=== PATIENT | female | born 1940 | race Caucasian/White ===

== ENCOUNTER → 2016-09-11 | Outpatient (CLI) | payer OTHER ==
[~2016-09-11] MED LIST: ASPCH81X PO; CALC12502 PO; CARV25TA PO; CHOL100027 PO; CLOP1TAB15 PO; CMD25 PO; CRD200 PO; CRG25 PO; CZR50 PO; FAMO40TA6 PO; FLV1 PO; FOLI800T PO; LEVO75TA PO; LNX125 PO; LOSA1TAB38 PO; MULT-506 PO; OMEP20CA59 PO; ONDA4TAB46 PO; PHEN-939 PO; SULF1TAB92 PO; SYMIN160 INH; SYN75 PO; TRIATAB3 PO; WARF2.5T8 PO; WARF5TAB90 PO; [UNRECOGNIZED DRUG - CODE] PO
--- NOTE | 2016-09-11 11:16 | DIAGNOSTIC IMAGING REPORT ---
CT OF THE CERVICAL SPINE CLINICAL HISTORY: CERVICAL SPONDYLOSIS NECK PAIN COMPARISON STUDY: No previous studies for comparison. CT DOSE: 376.36 mGycm TECHNIQUE: CT scan of the cervical spine was performed from the skull base to the thoracic inlet. Images are reviewed in the axial, sagittal, and coronal planes. IV contrast was not administered for this examination. FINDINGS: There is apical emphysema. The prevertebral soft tissues are normal. No fractures or traumatic subluxations are visualized. There are multilevel degenerative changes. 1.8 mm of anterior subluxation of C4 on C5 is felt to be degenerative. There is left-sided foraminal narrowing the C3-4 and C4-5 levels. There is a nonaggressive 4 mm cystic lesion within the odontoid. IMPRESSION: 1. Multilevel degenerative change with left-sided foraminal narrowing the C3-4 and C4-5 levels 2. No acute fractures or traumatic subluxations identified Electronically signed by: Wilver Falcon M.D. 09/11/2016 11:15 AM Dictated Date/Time: 09/11/2016 11:12 AM
== END | disposition home or self-care (01) ==
LOC: C.CTS 10:51
PROVIDERS: ATTEND Pain Medicine Interventional Pain Medicine
DX: M43.12 Spondylolisthesis, cervical region (principal)

== ENCOUNTER → 2016-10-26 | Outpatient (CLI) | payer OTHER ==
[~2016-10-26] MED LIST changes: -CARV25TA PO; -FAMO40TA6 PO; -FOLI800T PO; -LEVO75TA PO; -LOSA1TAB38 PO; -ONDA4TAB46 PO; -PHEN-939 PO; -SULF1TAB92 PO; -SYMIN160 INH; -TRIATAB3 PO; -WARF2.5T8 PO
--- NOTE | 2016-10-26 12:43 | MAMMOGRAPHY REPORT ---
BILATERAL DIGITAL SCREENING MAMMOGRAM WITH CAD: 10/26/2016 CLINICAL HISTORY: Routine screening. Patient has no complaints. TECHNIQUE: Current study was also evaluated with a Computer Aided Detection (CAD) system. Bilateral CC and MLO views were obtained. COMPARISON: Comparison is made to exams dated: 10/25/2015 mammogram, 10/22/2014 mammogram, 10/20/2013 ma mmogram, 10/13/2012 mammogram - [facility], 03/26/2011 mammogram, and 03/17/2009 mammo gram - [facility]. BREAST COMPOSITION: The tissue of both breasts is heterogeneously dense, which may obscure small mas ses. FINDINGS: No suspicious masses, calcifications, or areas of architectural distortion are noted in ei ther breast. There has been no significant interval change compared to prior exams. Scattered bilater al benign-appearing calcifications are not significantly changed. A pacemaker obscures portions of t he left superior breast/axilla on the MLO view. IMPRESSION: ACR BI-RADS CATEGORY 2: BENIGN There is no mammographic evidence of malignancy. A 1 year screening mammogram is recommended. The pa tient will receive written notification of the results. Approximately 10% of breast cancers are not detected with mammography. A negative mammographic report should not delay biopsy if a clinically suggestive mass is present. Margarita Melo M.D. /:10/26/2016 11:57:07 Lead Section Supervisor: Marie LE)(M), [facility] letter sent: Normal 1/2 BI-RADS Code: ACR BI-RADS Category 2: Benign
== END | disposition home or self-care (01) ==
LOC: C.MAMM 11:09
PROVIDERS: ATTEND Physician Assistant Medical
DX: Z12.31 Encounter for screening mammogram for malignant neoplasm of breast (principal)

== ENCOUNTER 2017-03-10 12:09 | Emergency (ER) | payer OTHER ==
[~2017-03-10] VITALS: Ht 167.6 cm; Wt 62.9 kg
[2017-03-10 12:11] VITALS: TEMP 36.7; Ht 167.6 cm; Wt 62.9 kg
[2017-03-10] MEDS ORDERED: FOLI800T PO (12:33)
[2017-03-10] MEDS ORDERED: SYMIN160 INH (12:33)
[2017-03-10] MEDS ORDERED: LOSA1TAB38 PO (12:33)
[2017-03-10] MEDS ORDERED: TRIATAB3 PO (12:33)
[2017-03-10] MEDS ORDERED: WARF2.5T8 PO (12:33)
[2017-03-10] MEDS ORDERED: LEVO75TA PO (12:33)
[2017-03-10] MEDS ORDERED: SULF1TAB92 PO (12:33)
[2017-03-10] MEDS ORDERED: ONDA4TAB46 PO (12:33)
[2017-03-10] MEDS ORDERED: CARV25TA PO (12:33)
--- NOTE | 2017-03-10 12:52 | EMERGENCY ROOM VISIT NOTE ---
History Report prepared by Jaydon: Francisco Javier Warner Under the Supervision of: Dr. Sudhakar Rodriguez M.D. First contact with patient: 12:33 Chief Complaint: URINARY SYMPTOMS Stated Complaint: UTI X 2 WKS, NAUSEA, DELCID-SENT TO ER BY History of Present Illness The patient is a 77 year old white female with a past medical history of a-fib, CAD, CABG, ICD biventricular placement, COPD, dyslipidemia, GERD, hypothyroidism , pacemaker, ND who presents to the ED with a cc of constant burning with urination and pressure in her bladder beginning one week ago. Patient had a UTI two weeks ago and was given Cipro. She took it for a week, and her symptoms returned immediately after taking Cipro. Patient went back to PCP and was given Levaquin. It did not work and has been on Bactrim for 2 days. Positive nausea, fluid buildup, and headache. Negative vomiting, missing doses of medication other than a dose of Coumadin this morning, feeling like cardiac issues. Patient 's last INR was three weeks ago, and it was high. She is currently taking Lasix and Amiodarone. Source of History: patient Onset: week ago Position: other (global) Quality: other (burning with urination, pressure in bladder) Timing: constant Associated Symptoms: + headache, + nausea, No vomiting Note: Associated symptoms: fluid build up Denies: missing medication Review of Systems See HPI for pertinent positives and negatives. A total of ten systems were reviewed and were otherwise negative. Past Medical & Surgical Medical Problems: (1) A-fib (2) CAD (coronary artery disease) (3) COPD (chronic obstructive pulmonary disease) (4) Dyslipidemia (5) GERD (gastroesophageal reflux disease) (6) Hypothyroidism (7) Myocardial infarction Surgical Problems: (1) Hx of CABG Family History Patient reports no known family medical history. Social History Smoking Status: Former Smoker Alcohol Use: none Marital Status: Current/Historical Medications Scheduled Aspirin (Aspirin Chewable), 81 MG PO HS Budesonide/Formoterol Fumarate (Symbicort 160/4.5 Inhaler ), 2 PUFFS INH BID Calcium Carbonate (Os-Walter 500), 1,000 MG PO DAILY Carvedilol (Coreg), 12.5 MG PO BID Cholecalciferol (Vitamin D 1000 Unit), 2,000 INTER.UNIT PO DAILY Ezetimibe/Simvastatin (Vytorin 10MG/80MG), 1 TAB PO QPM Famotidine (Pepcid), 1 TAB PO DAILY Folic Acid (Folic Acid), 800 MCG PO BID Levothyroxine Sodium (Synthroid), 75 MCG PO DAILY Losartan Potassium (Cozaar), 50 MG PO DAILY Multivitamin (Multivitamin), 1 TAB PO DAILY Omeprazole (Prilosec), 20 MG PO Q2D Phenazopyridine Hcl (Pyridium), 1 TAB PO TID Triamterene/Hctz (Triamterene/Hctz 37.5-25MG), 1 TAB PO DAILY Trimethoprim/Sulfamethoxazole (Bactrim 400MG/80MG), 1 TAB PO BID Warfarin Sod (Jantoven), 2.5 MG PO DAILY Scheduled PRN Ondansetron Hcl (Zofran), 4 MG PO Q4 PRN for Nausea Allergies Coded Allergies: Penicillins (Verified Allergy, Severe, "CAN'T BREATHE", 08/24/14) Physical Exam Vital Signs Date Time Temp Pulse Resp B/P (MAP) Pulse Ox O2 Delivery O2 Flow Rate FiO2 03/10/17 14:50 66 20 105/77 95 03/10/17 13:26 64 03/10/17 12:11 36.7 71 18 114/65 93 Room Air Physical Exam GENERAL: Awake, alert, well-appearing, NAD HENT: Normocephalic, atraumatic. EYES: Normal conjunctiva. Sclera non-icteric. NECK: Supple. No nuchal rigidity. FROM. RESPIRATORY: No rhonchi, wheezing. Bibasilar crackles. CARDIAC: RRR, no MRG ABDOMEN: Soft, NTND, BS+ MSK: No chest wall TTP, no LE edema. No CVA tenderness NEURO: GCS 15, CN 2-12 intact, moves all 4s on command SKIN: No rash or jaundice noted. Medical Decision & Procedures ER Provider Diagnostic Interpretation: X-ray: Per my interpretation, radiologist review. CHEST ONE VIEW PORTABLE HISTORY: Generalized abdominal pain. COMPARISON: Chest 12/27/2015. FINDINGS: Left-sided pacemaker/defibrillator. The heart remains borderline enlarged. No pneumothorax. Stable blunting of the costophrenic sulci. This may be due to the hyperexpanded lungs. No definite pleural effusions. Mild diffuse interstitial thickening. IMPRESSION: Mild diffuse interstitial thickening. This could be chronic or due to mild congestive change. Electronically signed by: Kraig Noel M.D. 03/10/2017 1:15 PM Dictated Date/Time: 03/10/2017 1:13 PM Laboratory Results 03/10/17 12:40 Red Blood Count 3.59, Mean Corpuscular Volume 85.5, Mean Corpuscular Hemoglobin 28.4, Mean Corpuscular Hemoglobin Concent 33.2, Mean Platelet Volume 8.5, Neutrophils (%) (Auto) 62.6, Lymphocytes (%) (Auto) 25.2, Monocytes (%) (Auto) 9.3, Eosinophils (%) (Auto) 2.4, Basophils (%) (Auto) 0.2, Neutrophils # (Auto) 3.90, Lymphocytes # (Auto) 1.57, Monocytes # (Auto) 0.58, Eosinophils # (Auto) 0.15, Basophils # (Auto) 0.01 03/10/17 12:40 Test 03/10/17 12:40 03/10/17 13:05 White Blood Count 6.23 K/uL (4.8-10.8) Red Blood Count 3.59 M/uL (4.2-5.4) Hemoglobin 10.2 g/dL (12.0-16.0) Hematocrit 30.7 % (37-47) Mean Corpuscular Volume 85.5 fL (80-100) Mean Corpuscular Hemoglobin 28.4 pg (25-34) Mean Corpuscular Hemoglobin Concent 33.2 g/dl (32-36) Platelet Count 227 K/uL (130-400) Mean Platelet Volume 8.5 fL (7.4-10.4) Neutrophils (%) (Auto) 62.6 % Lymphocytes (%) (Auto) 25.2 % Monocytes (%) (Auto) 9.3 % Eosinophils (%) (Auto) 2.4 % Basophils (%) (Auto) 0.2 % Neutrophils # (Auto) 3.90 K/uL (1.4-6.5) Lymphocytes # (Auto) 1.57 K/uL (1.2-3.4) Monocytes # (Auto) 0.58 K/uL (0.11-0.59) Eosinophils # (Auto) 0.15 K/uL (0-0.5) Basophils # (Auto) 0.01 K/uL (0-0.2) RDW Standard Deviation 47.6 fL (36.4-46.3) RDW Coefficient of Variation 15.2 % (11.5-14.5) Immature Granulocyte % (Auto) 0.3 % Immature Granulocyte # (Auto) 0.02 K/uL (0.00-0.02) Anion Gap 5.0 mmol/L (3-11) Est Creatinine Clear Calc Drug Dose 29.4 ml/min Estimated GFR () 39.6 Estimated GFR (Non- 34.2 BUN/Creatinine Ratio 9.9 (10-20) Calcium Level 8.1 mg/dl (8.5-10.1) Magnesium Level 1.8 mg/dl (1.8-2.4) Total Bilirubin 0.4 mg/dl (0.2-1) Direct Bilirubin 0.2 mg/dl (0-0.2) Aspartate Amino Transf (AST/SGOT) 25 U/L (15-37) Alanine Aminotransferase (ALT/SGPT) 15 U/L (12-78) Alkaline Phosphatase 54 U/L (45-117) Troponin I < 0.015 ng/ml (0-0.045) Pro-B-Type Natriuretic Peptide 1047 pg/ml (0-1800) Total Protein 7.0 gm/dl (6.4-8.2) Albumin 2.5 gm/dl (3.4-5.0) Lipase 107 U/L (73-393) Urine Color YELLOW Urine Appearance CLEAR (CLEAR) Urine pH 6.0 (4.5-7.5) Urine Specific Kimberly 1.014 (1.000-1.030) Urine Protein NEG (NEG) Urine Glucose (UA) NEG (NEG) Urine Ketones NEG (NEG) Urine Occult Blood NEG (NEG) Urine Nitrite NEG (NEG) Urine Bilirubin NEG (NEG) Urine Urobilinogen NEG (NEG) Urine Leukocyte Esterase NEG (NEG) Laboratory results reviewed by me Medications Administered Medications (Trade) Dose Ordered Sig/Shae Route Start Time Stop Time Status Last Admin Dose Admin Ondansetron HCl (Zofran Inj) 4 mg NOW STAT IV 03/10/17 13:01 03/10/17 13:03 DC 03/10/17 13:17 4 MG ECG Indication: weakness Rate (beats per minute): 62 Rhythm: other (Atrial sensed ventricularly paced) Findings: Q waves (Lateral and inferior), left axis deviation, other ( Prolonged QTc, Wide QRS) Comparison ECG Date: 08/26/14 Change: QTc is slightly more pronounced ED Course 1240: The patient was evaluated in room B10. A complete history and physical exam was performed. 1359: I reevaluated the patient. Discussed results and discharge instructions: she verbalized understanding and agreement. The patient is ready for discharge. Medical Decision The patient is a 77 year old white female with a past medical history of a-fib, CAD, CABG, ICD biventricular placement, COPD, dyslipidemia, GERD, hypothyroidism , pacemaker, ND who presents to the ED with a cc of burning with urination and pressure in her bladder beginning one week ago. Etiologies such as renal colic, appendicitis, diverticulitis, mesenteric ischemia, aortic pathology, infections , inflammatory bowel disease, PUD, biliary pathology, UTI, a typical chest pain , ACS, as well as others were entertained. Patient was seen and evaluated at the bedside. Patient had been complaining of some nausea as well as some burning urination and increased urinary frequency that has been ongoing for 2 weeks. Patient states that she was initially on a run of Cipro and then had concern on some Levaquin but was recently stopped from the Levaquin is started on Bactrim for the last 2 days. Patient denies any chest pain or shortness of breath. Patient did have blood work that was completed along with a urinalysis checked 6 chest x-ray, troponin, and EKG. The troponin and EKG were obtained to rule out possible atypical chest pain given the patient's nausea prior history of CAD. Patient states that she has had some mild weight gain within the last 2 days. Patient states that she takes Lasix every other day. Patient's blood work did show some mild hyponatremia. Patient is not altered is not had any seizure-like activity and has not been having any falls. This may be related to her Lasix use. The discussed with the patient would likely benefit from follow-up with her PCP and/ or manager recovery. Patient's EKG did not show any ischemic changes. She did have a slightly more prolonged QTC however the patient does have an AICD. Patient's troponin and BNP with that were within normal limits. Chest x-ray did show some vascular congestion however the patient is not hypoxic or tachypneic and does not have any difficulty breathing. Patient was told she should take an extra dose of her Lasix this evening. Patient was agreeable to this plan of care. Patient's urinalysis is negative. Patient was told to continue her Bactrim. Patient was deemed suitable for outpatient follow-up and treatment. Patient was given strict follow-up, discharge, and return precautions. All questions were answered. Patient was deemed suitable for outpatient follow-up at this time. Patient agreed with the plan of care and was safely discharged home. Medication Reconcilliation Current Medication List: was personally reviewed by me Blood Pressure Screening Patient's blood pressure: Normal blood pressure Blood pressure disposition: Did not require urgent referral Impression Primary Impression: Nausea Additional Impressions: Dysuria Hyponatremia Scribe Attestation The scribe's documentation has been prepared under my direction and personally reviewed by me in its entirety. I confirm that the note above accurately reflects all work, treatment, procedures, and medical decision making performed by me. Departure Information Dispostion Home / Self-Care Prescriptions Phenazopyridine Hcl (PYRIDIUM) 100 Mg Tab 1 TAB PO TID for 3 Days, #9 TAB Prov: Sudhakar Rodriguez M.D. 03/10/17 Famotidine (PEPCID) 40 Mg Tab 1 TAB PO DAILY for 30 Days, #30 TAB 3 Refills Prov: Sudhakar Rodriguez M.D. 03/10/17 Referrals Armani Haywood PA-C (PCP) Forms HOME CARE DOCUMENTATION FORM, IMPORTANT VISIT INFORMATION Patient Instructions ED Nausea Vomiting, My [facility], Nausea Vomit Control Additional Instructions Please return to the emergency department if you have worsening or recurrent symptoms not amenable to at-home treatment. Please call for a follow-up appointment with her primary care physician. Please take your medications as prescribed. If you have other concerns and/or complaints please feel free to also call your primary care physician's office or return the ED for further evaluation, management, and treatment. You may take 650 mg of tylenol every 6 hours. Please take an extra dose of lasix this evening. Take your medications as prescribed. If taking an antibiotic consider taking a probiotic and/or eating yogurt, but at the least, please take with food as it can cause upset stomach. You have been examined and treated today on an emergency basis only. This is not a substitute for, or an effort to provide, complete comprehensive medical care. It is impossible to recognize and treat all injuries or illnesses in a single emergency department visit. It is therefore important that you follow up closely with [facility], your PCP, and/or your specialist(s). Call as soon as possible for an appointment. Thank you for your time and consideration. I look forward to speaking with you again soon. Please don't hesitate to call us if you have any questions. Problem Qualifiers
[2017-03-10] MEDS ORDERED: ONDANSETRON INJ 2 MG/ML 2 ML VIAL IV STA (13:01)
--- NOTE | 2017-03-10 13:16 | DIAGNOSTIC IMAGING REPORT ---
CHEST ONE VIEW PORTABLE HISTORY: Generalized abdominal pain. COMPARISON: Chest 12/27/2015. FINDINGS: Left-sided pacemaker/defibrillator. The heart remains borderline enlarged. No pneumothorax. Stable blunting of the costophrenic sulci. This may be due to the hyperexpanded lungs. No definite pleural effusions. Mild diffuse interstitial thickening. IMPRESSION: Mild diffuse interstitial thickening. This could be chronic or due to mild congestive change. Electronically signed by: Kraig Noel M.D. 03/10/2017 1:15 PM Dictated Date/Time: 03/10/2017 1:13 PM
[2017-03-10 13:18] LABS: BASO % 0.2 %; BASO ABS # 0.01 K/uL (0-0.2); COMPLETE YES; EOS % 2.4 %; HEMATOCRIT 30.7 % (37-47); IG% 0.3 %; LYMPH % 25.2 %; LYMPH ABS # 1.57 K/uL (1.2-3.4); MEAN CELL VOLUME 85.5 fL (80-100); MEAN CORPUSCULAR HEMOGLOBIN 28.4 pg (25-34); MEAN CORPUSCULAR HGB CONC 33.2 g/dl (32-36); MEAN PLATELET VOLUME 8.5 fL (7.4-10.4); MONO % 9.3 %; NEUT % 62.6 %; PLATELET COUNT 227 K/uL (130-400); RED BLOOD COUNT 3.59 M/uL (4.2-5.4); WHITE BLOOD COUNT 6.23 K/uL (4.8-10.8)
[2017-03-10 13:27] LABS: ALT/SGPT 15 U/L (12-78); AST/SGOT 25 U/L (15-37); BLOOD UREA NITROGEN 14 mg/dl (7-18); BUN/CREATININE RATIO 9.9 (10-20); CALCIUM 8.1 mg/dl (8.5-10.1); CARBON DIOXIDE 28 mmol/L (21-32); CHLORIDE 93 mmol/L (98-107); CREATININE 1.45 mg/dl (0.60-1.20); GLUCOSE 92 mg/dl (70-99); MAGNESIUM 1.8 mg/dl (1.8-2.4); POTASSIUM 3.5 mmol/L (3.5-5.1); SODIUM 126 mmol/L (136-145)
[2017-03-10 13:30] LABS: URINE APPEARANCE CLEAR (CLEAR); URINE BILIRUBIN NEG (NEG); URINE COLOR YELLOW; URINE NITRITE NEG (NEG); URINE SPECIFIC GRAVITY 1.014 (1.000-1.030); UROBILINOGEN NEG (NEG); ZZUR CULT IF INDIC CLEAN CATCH NO
[2017-03-10 13:31] LABS: MANUAL MICROSCOPIC REQUIRED? NO; REVIEW REQ? NO
[2017-03-10 13:33] LABS: ALKALINE PHOSPHATASE 54 U/L (45-117)
[2017-03-10] MEDS ORDERED: PHEN-939 PO (14:24)
[2017-03-10] MEDS ORDERED: FAMO40TA6 PO (14:24)
[2017-03-10 14:50] VITALS: BP 105/77; PULSE 66; O2SAT 95
== END 2017-03-10 15:19 | disposition home or self-care (01) ==
LOC: C.EDB 12:11
DX: R11.0 Nausea (principal); R30.0 Dysuria; E87.1 Hypo-osmolality and hyponatremia; I48.91 Unspecified atrial fibrillation; J44.9 Chronic obstructive pulmonary disease, unspecified; E78.5 Hyperlipidemia, unspecified; K21.9 Gastro-esophageal reflux disease without esophagitis; E03.9 Hypothyroidism, unspecified; R40.2412 Glasgow coma scale score 13-15, at arrival to emergency department; Z87.891 Personal history of nicotine dependence; Z79.82 Long term (current) use of aspirin; Z79.01 Long term (current) use of anticoagulants

== ENCOUNTER 2018-10-26 11:15 | Inpatient (IN) ==
[2018-10-26] MEDS ORDERED: ALBUT/IPRATROP 3MG/0.5MG NEB 3 ML VIAL NEB STA (11:38)
[2018-10-26] MEDS ORDERED: methylPREDNISolone 125 MG/2 ML VIAL IV STA (11:38)
[2018-10-26 11:48] LABS: Basophils # (auto) 0.01 K/uL (0-0.2); Basophils % (auto) 0.1 %; Eosinophils % (auto) 1.3 %; Hematocrit (blood only) 31.5 % (37-47); Hemoglobin 10.7 g/dL (12.0-16.0); Immature Granulocytes # (auto) 0.02 K/uL (0.00-0.02); Immature Granulocytes % (auto) 0.3 %; Lymphocytes # (auto) 1.77 K/uL (1.2-3.4); Lymphocytes % (auto) 23.8 %; Mean Platelet Volume 8.7 fL (7.4-10.4); Monocytes # (auto) 0.64 K/uL (0.11-0.59); Monocytes % (auto) 8.6 %; Neutrophils % (auto) 65.9 %; Platelet Count 189 K/uL (130-400); RDW Coefficient of Variation 14.4 % (11.5-14.5); RDW Standard Deviation 45.7 fL (36.4-46.3); Red Blood Count 3.58 M/uL (4.2-5.4); White Blood Count 7.44 K/uL (4.8-10.8)
--- NOTE | 2018-10-26 11:57 | XRay Report ---
SINGLE VIEW CHEST CLINICAL HISTORY: Dyspnea. FINDINGS: An AP, portable, upright chest radiograph is compared to study dated 10/17/2018 and correlate d with chest CT dated 08/20/2018. The examination is degraded by portable technique and patient rotatio n. A 3-lead cardiac AICD is unchanged in position and largely obscures the left lung base. The heart is enlarged and there is atherosclerotic calcification of the thoracic aorta. There is pulmonary vasc ular congestion. Emphysema and chronic interstitial thickening are similar to previous. Trace pleural effusions are suspected. There are asymmetric airspace opacities identified in the left upper lobe, the right upper lobe, and at both lung bases. No pneumothorax is seen. The skeletal structures are os teopenic. The bony thorax is grossly intact. IMPRESSION: 1. Cardiomegaly and AICD with evidence of congestive failure. 2. Emphysema. 3. There are asymmetric patchy airspace opacities bilaterally, likely representing a component of pul monary edema. Correlate clinically for evidence of superimposed pneumonia/aspiration pneumonitis whic h could have a similar appearance. 4. Suspect small pleural effusions. Electronically signed by: Brannon Trejo M.D. 10/26/2018 11:55 AM
[2018-10-26] MEDS ORDERED: FUROSEMIDE 20 MG in SYRINGE 0 ML IV ONE (12:00)
[2018-10-26 12:06] LABS: Alanine Aminotransferase 17 U/L (12-78); Albumin Level 2.8 gm/dl (3.4-5.0); Aspartate Aminotransferase 27 U/L (15-37); BUN Creatinine Ratio 13.5 (10-20); Blood Urea Nitrogen 18 mg/dl (7-18); Carbon Dioxide 26 mmol/L (21-32); Chloride 103 mmol/L (98-107); Creatinine Clr Calc Pharmacy 27.4 ml/min; Est GFR (African American) 42.9; Glucose 94 mg/dl (70-99); Magnesium 2.2 mg/dl (1.8-2.4); Potassium 4.2 mmol/L (3.5-5.1); Sodium 135 mmol/L (136-145)
[2018-10-26 12:09] LABS: Partial Thromboplastin Ratio 1.6; Partial Thromboplastin Time 43.8 Seconds (21.0-31.0)
[2018-10-26] MEDS ORDERED: FUROSEMIDE 40 MG/4 ML VIAL IV ONE (12:09)
[2018-10-26 12:11] LABS: Albumin Globulin Ratio 0.5 (0.9-2); Alkaline Phosphatase 67 U/L (45-117); Bilirubin,Total 0.7 mg/dl (0.2-1); Globulin 5.5 gm/dl (2.5-4.0); NT Pro B Type Natriuretic Pept 3677 pg/ml (0-1800); Total Protein 8.3 gm/dl (6.4-8.2); Troponin I < 0.015 ng/ml (0-0.045)
--- NOTE | 2018-10-26 13:33 | History & Physical Report ---
Date of Service October 26, 2018 Assessment & Plan (1) Congestive heart failure: Sx, noted on CXR Likely related to recent HCTZ d/c for hypoNa Given lasix 20mg IV in the ED and improving Will dose again in the AM It does sound as if the HCTZ was causing hypoNa, she will need restarted on a lower dose c/s Heart Failure clinic Pt had an ECHO on 07/14/18 with EF 35-40%, will not repeat as I do not think this is a worsening of CHF, just a result of holding diuretic (2) Hypoxia: As noted above (3) COPD (chronic obstructive pulmonary disease): No current exacerbation Will continue with scheduled nebs to avoid exacerbation however Will not continue steroids to avoid side effects (4) Hyponatremia: Appears resolved, however pt is a low normal on admission at 135 Monitor (5) UTI (urinary tract infection): Started cipro due to sx, but had not been seen for UA yet UA pending Will continue for now, but should be re-evaluated once UA available (6) Persistent atrial fibrillation: continue home meds INR 4.0, will hold today and monitor (7) History of [place] (myocardial infarction): continue home meds (8) Ischemic cardiomyopathy: continue home meds (9) GERD (gastroesophageal reflux disease): continue home meds (10) Hypothyroidism: continue home meds (11) Hyperlipidemia: continue home meds (12) DVT prophylaxis: Supratherapeutic on coumadin Monitor History of Present Illness Primary Care Provider: Armani Haywood 78 y/o F c/o SOB. Pt states that she has had some SOB with exertion for the last 2-3 weeks. This would resolve with rest though. She states that it was a bit worse since Saturday, but still resolving with rest. Her water pill was stopped about [address] Hill due to hypoNa. She states that she was t old that if she started to have SOB, to call the office. She states that she called the office and nursing told her that this was not a cardiology issue and to call her PCP. She called her PCP who wanted her to come the ED on Saturday, but she states that she did not want to do that due to a family reunion on Saturday. She was able to go to the reunion but did not move around at all once she arrived. She states that last night she started having SOB at rest and could not control it. It was worse this AM, so she came to the ED. Pt has no hx of home O2 use. She has a nebulizer at home and tried this, but no help. Pt was started on O2 in the ED and was given lasix 20mg IV, nebs, solumedrol. She states she is feeling much better. No SOB at rest, but she has not been OOB for a trial with exertion. Pt states that she used to take her water pill (uncertain of the name, old notes suggest triamterene/HCTZ 37.5/25) QOD due to feeling too "dried out" when taking every day. She had recently been taking it QD due to the worsening SOB, but then it was stopped for hypoNa. She states she was lightheaded with the hypoNa and that has since resolved. Pt had her pacer battery changed out on 10/09 and no issues with this. Pt states that her losaran was recently stopped due to BP in the 80s. She has been in the 110s since d/c of losartan. Pt states that she noted burning with urination last night. She had left over cipro, so she took a dose last night and again this AM until she could be seen. She has hx of UTIs. Pt denies fever, chest pain, abd pain, n/v/c/d, LE pain or swelling. She states she never gets LE swelling with her CHF. Allergies Allergy/AdvReac Type Severity Reaction Status Date / Time Penicillins Allergy Severe "CAN'T Verified 10/09/18 06:24 BREATHE" Home Medications Home Medications Medication Instructions Recorded Confirmed Type amiodarone 100 mg PO DAILY 08/21/18 10/26/18 History aspirin [Aspir-81] 81 mg PO DAILY 08/21/18 10/26/18 History budesonide 2 ml INHALATION BID 08/21/18 10/26/18 History carvedilol 25 mg PO BIDM 08/21/18 10/26/18 History cholecalciferol (vitamin D3) 2,000 unit PO DAILY 08/21/18 10/26/18 History [Vitamin D3] esomeprazole magnesium [Nexium] 20 mg PO DAILY 08/21/18 10/26/18 History ezetimibe-simvastatin [Vytorin 1 tab PO HS 08/21/18 10/26/18 History 10-80] folic acid 1 mg PO DAILY 08/21/18 10/26/18 History levothyroxine 100 mcg PO DAILY 08/21/18 10/26/18 History multivitamin [Multiple Vitamins] 1 tab PO QAM 08/21/18 10/26/18 History nitroglycerin 0.4 mg SUBLINGUAL UD PRN 08/21/18 10/26/18 History warfarin [Coumadin] 2.5 mg PO DAILY 08/21/18 10/26/18 History ciprofloxacin HCl [Cipro] 250 mg PO BID 10/26/18 10/26/18 History Past Med/Surg History Medical History COPD (chronic obstructive pulmonary disease) A-fib (Chronic) CAD (coronary artery disease) (Chronic) Dyslipidemia (Chronic) GERD (gastroesophageal reflux disease) (Chronic) Hypothyroidism (Chronic) Pacemaker Social History Preferred Language: Salvadorean Communication Ability: Effective Beliefs That Will Affect Care: None Current Living Situation: Alone Other Information That Helps Us Care for You: No Feels Safe at Home: Yes Safety Concerns: Feels Safe At This Time Smoking Status: Former smoker Number of Years Since Quit: 25 Second Hand Exposure: No Hx Alcohol Use: No Hx Substance Use: No Review of Systems Review of Systems: Pertinent positives and negatives reviewed in HPI--all others negative Physical Exam Constitutional: WD/WN, vitals as above Eyes: normal visual christina by confrontation and + anicteric sclerae Neck: normal visual inspection and trachea midline Respiratory: normal respiratory effort; no respiratory distress Auscultation: + crackles; no wheezes Cardiovascular: Rate/Rhythm: regular rate and regular rhythm Gastrointestinal (Abdomen): Inspection/Auscultation: abdomen not distended Percussion/Palpation: abdomen soft; abdomen nontender Musculoskeletal: Head/Neck/Chest: normocephalic and head atraumatic negative for edema, peripheral pulses intact Skin: no rashes, warm and dry Neurologic: awake; not confused Speech / Cognition: normal speech Psychiatric: A+Ox3, euthymic affect Results & Data Vital Signs (Past 12 Hours) Vital Signs Temp Pulse Pulse Resp BP BP Pulse Ox 10/26/18 12:30 60 18 134/88 94 10/26/18 11:53 60 16 96 10/26/18 11:35 88 L 10/26/18 11:21 36.4 C L 60 22 111/71 88 L Diagnostic Findings CXR: CHF exacerbation Code Status & VTE Plan Code Status States she would like cardiac resuscitation "if you think it will work" but does not want intubated at any time. I did advise her that we cannot make a distinction regarding success of cardiac resuscitation, so she will be considered a full cardiac code unless she decides otherwise. She was quite clear that she does not want anything "above and beyond". VTE Prophylaxis Plan VTE Prophylaxis will be ordered: Yes PG Care Time/CCT Total # of Minutes Spent Total Time Spent with Patient: Total time spent is greater than 50% in coordination of care (as documented) at patient's floor/unit and/or counseling patient: (1) Congestive heart failure Heart failure chronicity: unspecified Heart failure type: unspecified Qualified Code(s): I50.9 - Heart failure, unspecified
[2018-10-26 14:02] LABS: Appearance Urine Clear (Clear); Bacteria Urine Automated Negative (Negative); Bilirubin Urine Negative (Negative); Cast Urine Automated 0 /lpf (0-5); Color Urine Yellow; Epithelial Cell Urine Auto 0-5 /lpf (0-5); Glucose Urine UA Negative (Negative); Ketones Urine Negative (Negative); Leukocyte Esterase Urine Trace (Negative); Nitrite Urine Negative (Negative); Protein Urine Negative (Negative); Specific Gravity Urine 1.006 (1.000-1.030); Urobilinogen Urine Negative (Negative)
[2018-10-26] MEDS ORDERED: NITROGLYCERIN SL 0.4 MG/TAB TAB SL PRN (14:53)
[2018-10-26] MEDS ORDERED: MAGNESIUM HYDROXIDE SUSP 30 ML UDC PO PRN (14:53)
[2018-10-26] MEDS ORDERED: ONDANSETRON INJ 2 MG/ML 2 ML VIAL IV PRN (14:53)
[2018-10-26] MEDS ORDERED: ACETAMINOPHEN 325 MG TAB PO PRN (14:53)
[2018-10-26] MEDS: ALBUT/IPRATROP 3MG/0.5MG NEB 3 ML VIAL NEB SCH ×3 (15:50→23:20)
[2018-10-26] MEDS: CARVEDILOL 25 MG TAB PO SCH (16:27)
--- NOTE | 2018-10-26 17:20 | Emergency Department Note ---
Entered by Rolando Eastman acting as a scribe for ED Provider Note CHIEF COMPLAINT: dyspnea HISTORY OF PRESENT ILLNESS: The patient is a 78 year old female who presents to the Emergency Room with complaints of dyspnea. The patient states that all night she has been having difficulty breathing in her bed. The patient decided to sit in her chair and she only slept for an hour. The patient is not normally on oxygen. The patient used a nebulizer at home but it only helping a little bit. The patient quit smoking 25 years ago. She has COPD. The patient has been having difficulty breathing for about [address] Hill replaced the battery in her pacemaker. They also took away her diuretic and her breathing worsened. The patient also had a cough for about two weeks. Patient also had a UTI which caused her to burn. The patient took 1 250mg pill of zypro she had left over from a different UTI yesterday and twice today to try and clear it up. Pt denies LOC, headache, fevers, chills, diaphoresis, visual changes, neck pain, chest pain, nausea, vomiting, abdominal pain, back pain, melena, hematochezia, u rinary symptoms, numbness, weakness, lymphadenopathy, rash, or other complaints. REVIEW OF SYSTEMS: See HPI for pertinent positives and negatives. A total of ten systems were reviewed and were otherwise negative. PMHx/PSHx: Ischemic cardiomyopathy, history of [place], COPD SOCIAL HISTORY: Patient lives at home. PHYSICAL EXAM: GENERAL: Awake, alert, uncomfortable apprearing. HENT: Normocephalic, atraumatic. Oropharynx unremarkable. EYES: PERRL. Normal conjunctiva. Sclera non-icteric. NECK: Inspection normal. Non-tender. Supple. No nuchal rigidity. FROM. No masses. RESPIRATORY: Decreased air bilaterally. Few scattered rhales. CARDIAC: Normal rate. Normal rhythm. No murmurs. No rubs. Extremities warm and well perfused. Pulses equal. No JVD. GI: Soft, non-distended. No tenderness to palpation. No rebound or guarding. No masses. RECTAL: Deferred. MUSCULOSKELETAL: Atraumatic. Chest examination reveals no tenderness. The back is symmetrical on inspection without obvious abnormality. There is no CVA tenderness to palpation. No joint edema. LOWER EXTREMITIES: Calves are equal size bilaterally and non-tender. No edema. No discoloration. NEURO: Normal sensorium. No sensory or motor deficits noted. SKIN: No rash or jaundice noted. EMERGENCY DEPARTMENT COURSE: 1135: Past medical records reviewed. The patient was evaluated in room A2, and a complete history and physical examination were performed. 1226: I updated the patient on her results, I also paged [facility]. 1129: I spoke with Dr. León, [facility] Hospitalist, about the patients case and he agreed to accept the patient for further evaluation MEDICAL DECISION MAKING: Prior records/ancillary studies reviewed. Patient was recently seen for pacemaker battery change. Triage Nursing notes reviewed and agree them. The patient's history was concerning for shortness of breath. Differential diagnosis: Etiologies such as pneumonia, COPD, reactive airway disease, CHF, cardiac ischemia, pulmonary embolism, pneumothorax, musculoskeletal, infections, gastrointestinal, as well as others were entertained. Physical examination: The patient was hypoxic requiring supplemental nasal oxygen. ER treatment provided: Cardiac monitoring Supplemental oxygen Solu-Medrol IV DuoNeb On reassessment the patient felt somewhat better. IV Lasix. Diagnostic interpretation by me: The electrocardiogram was negative for pathologic change. The labs revealed an unremarkable CBC and chemistry panel. The patient's troponin is negative. Her BNP is significantly elevated over 3000 concerning for CHF. Imaging studies: Chest x-ray consistent with volume overload and CHF. Patient has pulmonary edema with hypoxia. She has increased work of breathing and requiring supplemental oxygen. She will need further management in the hospital. Consultation: A consultation was placed with the hospitalist. The case was discussed and diagnostics were reviewed. The patient was evaluated in the ER for further treatment. IMPRESSION: Hypoxia, Pulmonary edema, CHF PLAN: Further evaluated by Hospitalist The scribe's documentation has been prepared under my direction and personally reviewed by me in its entirety. I confirm that the note above accurately reflects all work, treatment, procedures, and medical decision making performed by me. Impression & Plan Hypoxia, Acute pulmonary edema, Congestive heart failure Past Med/Surg History Medical History COPD (chronic obstructive pulmonary disease) A-fib (Chronic) CAD (coronary artery disease) (Chronic) Dyslipidemia (Chronic) GERD (gastroesophageal reflux disease) (Chronic) Hypothyroidism (Chronic) Pacemaker Social History Preferred Language: Malawian Communication Ability: Effective Beliefs That Will Affect Care: None Current Living Situation: Alone Feels Safe at Home: Yes Smoking Status: Former smoker Second Hand Exposure: No Hx Alcohol Use: No Hx Substance Use: No Results & Data Vital Signs Vital Signs - 24 hr 10/26/18 11:21 10/26/18 11:35 10/26/18 11:39 Temperature 36.4 C L Temperature Source Oral Sepsis Recent Fever Within 48 Hours No Sepsis New/Unexplained Change in Mental Status No Sepsis Action Taken by Nursing No Action Required Oxygen Flow Rate - Titration 2 Pulse Oximetry Post Tiitration 95 Pulse Rate 60 Pulse Rate [Apical] Pulse Rhythm Regular Pulse Strength Normal Respiratory Rate 22 Respiratory Effort / Characteristics Non-Labored Spontaneous Accessory Muscle Use Respiratory Depth Normal Respiratory Pattern Regular Blood Pressure 111/71 Blood Pressure [Left Arm] Blood Pressure Mean 84 Blood Pressure Mean [Left Arm] Blood Pressure Position Sitting Pulse Oximetry 88 L 88 L Oxygen Delivery Method Room Air Room Air Room Air Oxygen Flow Rate 0 10/26/18 11:53 10/26/18 12:30 10/26/18 13:01 Temperature Temperature Source Sepsis Recent Fever Within 48 Hours Sepsis New/Unexplained Change in Mental Status Sepsis Action Taken by Nursing Oxygen Flow Rate - Titration Pulse Oximetry Post Tiitration Pulse Rate Pulse Rate [Apical] 60 60 Pulse Rhythm Pulse Strength Respiratory Rate 16 18 Respiratory Effort / Characteristics Non-Labored Spontaneous Non-Labored Short of Breath SOB on Exertion Respiratory Depth Normal Respiratory Pattern Regular Blood Pressure Blood Pressure [Left Arm] 134/88 Blood Pressure Mean Blood Pressure Mean [Left Arm] 103 Blood Pressure Position Pulse Oximetry 96 94 Oxygen Delivery Method Nasal Cannula Nasal Cannula Nasal Cannula Oxygen Flow Rate 2 2 2 Home Medications Current Medication List: was personally reviewed by me Laboratory Data Attestation: I reviewed the patient's lab results. Result diagrams: 10/26/18 11:35 10/26/18 11:35 Lab Results 10/26/18 10/26/18 10/26/18 Range/Units 11:35 11:35 11:35 WBC 7.44 (4.8-10.8) K/uL RBC 3.58 L (4.2-5.4) M/uL Hgb 10.7 L (12.0-16.0) g/dL Hct 31.5 L (37-47) % MCV 88.0 (80-100) fL MCH 29.9 (25-34) pg MCHC 34.0 (32-36) g/dL RDW Std Deviation 45.7 (36.4-46.3) fL RDW Coeff of Lachelle 14.4 (11.5-14.5) % Plt Count 189 (130-400) K/uL MPV 8.7 (7.4-10.4) fL Immature Gran % (Auto) 0.3 % Neut % (Auto) 65.9 % Lymph % (Auto) 23.8 % Pike % (Auto) 8.6 % Eos % (Auto) 1.3 % Baso % (Auto) 0.1 % Immature Gran # (Auto) 0.02 (0.00-0.02) K/uL Neut # (Auto) 4.90 (1.4-6.5) K/uL Lymph # (Auto) 1.77 (1.2-3.4) K/uL Pike # (Auto) 0.64 H (0.11-0.59) K/uL Eos # (Auto) 0.10 (0-0.5) K/uL Baso # (Auto) 0.01 (0-0.2) K/uL PT 37.0 H (9.0-12.0) Seconds INR 4.0 H (0.9-1.1) APTT 43.8 H (21.0-31.0) Seconds PTT Ratio 1.6 Sodium 135 L (136-145) mmol/L Potassium 4.2 (3.5-5.1) mmol/L Chloride 103 (98-107) mmol/L Carbon Dioxide 26 (21-32) mmol/L Anion Gap 6.0 (3-11) BUN 18 (7-18) mg/dl Creatinine 1.35 H (0.6-1.2) mg/dl Est Cr Clr Drug Dosing 27.4 ml/min Est GFR ( Amer) 42.9 Est GFR (Non-Af Amer) 37.0 BUN/Creatinine Ratio 13.5 (10-20) Glucose 94 (70-99) mg/dl Calcium 9.0 (8.5-10.1) mg/dl Magnesium 2.2 (1.8-2.4) mg/dl Total Bilirubin 0.7 (0.2-1) mg/dl AST 27 (15-37) U/L ALT 17 (12-78) U/L Alkaline Phosphatase 67 (45-117) U/L Troponin I < 0.015 (0-0.045) ng/ml NT-Pro-B Natriuret Pep 3677 H (0-1800) pg/ml Total Protein 8.3 H (6.4-8.2) gm/dl Albumin 2.8 L (3.4-5.0) gm/dl Globulin 5.5 H (2.5-4.0) gm/dl Albumin/Globulin Ratio 0.5 L (0.9-2) 10/26/18 Range/Units 11:35 WBC (4.8-10.8) K/uL RBC (4.2-5.4) M/uL Hgb (12.0-16.0) g/dL Hct (37-47) % MCV (80-100) fL MCH (25-34) pg MCHC (32-36) g/dL RDW Std Deviation (36.4-46.3) fL RDW Coeff of Lachelle (11.5-14.5) % Plt Count (130-400) K/uL MPV (7.4-10.4) fL Immature Gran % (Auto) % Neut % (Auto) % Lymph % (Auto) % Pike % (Auto) % Eos % (Auto) % Baso % (Auto) % Immature Gran # (Auto) (0.00-0.02) K/uL Neut # (Auto) (1.4-6.5) K/uL Lymph # (Auto) (1.2-3.4) K/uL Pike # (Auto) (0.11-0.59) K/uL Eos # (Auto) (0-0.5) K/uL Baso # (Auto) (0-0.2) K/uL PT (9.0-12.0) Seconds INR (0.9-1.1) APTT (21.0-31.0) Seconds PTT Ratio Sodium (136-145) mmol/L Potassium (3.5-5.1) mmol/L Chloride (98-107) mmol/L Carbon Dioxide (21-32) mmol/L Anion Gap (3-11) BUN (7-18) mg/dl Creatinine (0.6-1.2) mg/dl Est Cr Clr Drug Dosing ml/min Est GFR ( Amer) Est GFR (Non-Af Amer) BUN/Creatinine Ratio (10-20) Glucose (70-99) mg/dl Calcium (8.5-10.1) mg/dl Magnesium (1.8-2.4) mg/dl Total Bilirubin (0.2-1) mg/dl AST (15-37) U/L ALT (12-78) U/L Alkaline Phosphatase (45-117) U/L Troponin I (0-0.045) ng/ml NT-Pro-B Natriuret Pep Cancelled (0-1800) pg/ml Total Protein (6.4-8.2) gm/dl Albumin (3.4-5.0) gm/dl Globulin (2.5-4.0) gm/dl Albumin/Globulin Ratio (0.9-2) Administered Medications Albuterol (Duoneb) 3 ml NEB Q4R RAI Stop: 11/25/18 15:59 Last Admin: 10/26/18 15:50 Dose: 3 ml Documented by: [id number] Carvedilol (Coreg) 25 mg PO BIDM RAI Stop: 11/25/18 16:59 Last Admin: 10/26/18 16:27 Dose: 25 mg Documented by: [id number] Discontinued Medications Albuterol (Duoneb) 3 ml NEB NOW STA Stop: 10/26/18 11:39 Last Admin: 10/26/18 11:51 Dose: 3 ml Documented by: [id number] Furosemide (Lasix) Confirm Administered Dose 40 mg IV .STK-MED ONE Stop: 10/26/18 12:10 Last Admin: 10/26/18 12:25 Dose: 20 mg Documented by: [id number] Furosemide 20 mg/ Syringe 2 mls @ 4 mls/min IV ONE ONE Stop: 10/26/18 12:01 Last Admin: 10/26/18 12:25 Dose: Not Given Documented by: [id number] Methylprednisolone (Solumedrol) 125 mg IV NOW STA Stop: 10/26/18 11:39 Last Admin: 10/26/18 12:25 Dose: 125 mg Documented by: [id number] Imaging Data Attestation: I personally reviewed and interpreted this imaging study as follows: Radiologist's Impression: Radiology results have been interpreted by the radiologist and reviewed by me. SINGLE VIEW CHEST CLINICAL HISTORY: Dyspnea. FINDINGS: An AP, portable, upright chest radiograph is compared to study dated 10/17/2018 and correlated with chest CT dated 08/20/2018. The examination is degraded by portable technique and patient rotation. A 3-lead cardiac AICD is unchanged in position and largely obscures the left lung base. The heart is enlarged and there is atherosclerotic calcification of the thoracic aorta. There is pulmonary vascular congestion. Emphysema and chronic interstitial thickening are similar to previous. Trace pleural effusions are suspected. There are asymmetric airspace opacities identified in the left upper lobe, the right upper lobe, and at both lung bases. No pneumothorax is seen. The skeletal structures are osteopenic. The bony thorax is grossly intact. IMPRESSION: 1. Cardiomegaly and AICD with evidence of congestive failure. 2. Emphysema. 3. There are asymmetric patchy airspace opacities bilaterally, likely representing a component of pulmonary edema. Correlate clinically for evidence of superimposed pneumonia/aspiration pneumonitis which could have a similar appearance. 4. Suspect small pleural effusions. Electronically signed by: Brannon Trejo M.D. 10/26/2018 11:55 AM ECG Data Attestation: I personally reviewed and interpreted this ECG as follows: Indication: SOB/dyspnea Rate (beats per minute): 60 Rhythm: other (Paced) Findings: no PVC and no ST elevation Blood Pressure Blood Pressure Findings: Normal blood pressure Discharge Plan Visit Data *Final* Discharge Date/Time: 10/26/18 14:04 Chief Complaint: Shortness of Breath/Dyspnea Stated Complaint: SOB,LIGHTHEADED ED Provider: Osman Alvarez Discharge Problem: Hypoxia, Acute pulmonary edema, Congestive heart failure Patient Disposition: Admitted As Inpatient Discharge Instructions Interventions: ED Discharge Assessment Last Done: 10/26/18 14:04 Discharge Problem: Congestive heart failure Qualifiers: Heart failure type: unspecified Heart failure chronicity: unspecified Qualified Code(s): I50.9 - Heart failure, unspecified The scribe's documentation has been prepared under my direction and personally reviewed by me in its entirety. I confirm that the note above accurately reflects all work, treatment, procedures, and medical decision making performed by me.
[2018-10-26] MEDS: BUDESONIDE 0.5 MG/2 ML VIAL (PULMICORT) INH SCH (19:17)
[2018-10-26] MEDS: EZETIMIBE 10 MG TABLET PO SCH (20:36)
[2018-10-27] MEDS: ALBUT/IPRATROP 3MG/0.5MG NEB 3 ML VIAL NEB SCH ×6 (03:07→23:40)
[2018-10-27] MEDS: LEVOTHYROXINE SODIUM 100 MCG TABLET PO SCH (05:49)
[2018-10-27 06:32] LABS: Prothrombin Time 37.1 Seconds (9.0-12.0)
[2018-10-27 06:34] LABS: BUN Creatinine Ratio 15.4 (10-20); Calcium 8.9 mg/dl (8.5-10.1); Creatinine Clr Calc Pharmacy 23.7 ml/min; Est GFR (Non-African American) 31.1; Potassium 3.7 mmol/L (3.5-5.1)
[2018-10-27] MEDS: BUDESONIDE 0.5 MG/2 ML VIAL (PULMICORT) INH SCH ×2 (07:21→19:21)
[2018-10-27 07:23] LABS: Appearance Urine Cloudy (Clear); Bacteria Urine Automated Negative (Negative); Bilirubin Urine Negative (Negative); Color Urine Yellow; Epithelial Cell Urine Auto >30 /lpf (0-5); Glucose Urine UA Negative (Negative); Ketones Urine Negative (Negative); Leukocyte Esterase Urine Negative (Negative); Nitrite Urine Negative (Negative); Protein Urine Negative (Negative); Specific Gravity Urine 1.027 (1.000-1.030); Urobilinogen Urine Negative (Negative)
[2018-10-27] MEDS: PANTOprazole 40 MG TAB PO SCH (08:14)
[2018-10-27] MEDS: FOLIC ACID 1 MG TAB PO SCH (08:14)
[2018-10-27] MEDS: CIPROFLOXACIN 250 MG TAB PO SCH (08:14)
[2018-10-27] MEDS: MULTIVITAMIN TAB PO SCH (08:15)
[2018-10-27] MEDS: AMIODARONE 200 MG TAB PO SCH (08:16)
[2018-10-27] MEDS: CHOLECALCIFEROL 1,000 UNITS TAB PO SCH (08:17)
[2018-10-27] MEDS: ASPIRIN 81 MG ECTAB PO SCH (08:17)
[2018-10-27] MEDS: CARVEDILOL 25 MG TAB PO SCH ×2 (08:17→17:40)
--- NOTE | 2018-10-27 08:52 | Hospitalist Progress Note ---
Date of Service October 27, 2018 Assessment & Plan (1) Congestive heart failure: - Exacerbation of systolic CHF - Improved with diuresis of Lasix 20 mg IV at time of admission and again this morning, will switch to 20 mg PO tomorrow morning as pt appears near euvolemic - Likely related to recent d/c of triamterene/HCTZ d/t hypoNa - Cardiology consulted - Heart failure clinic - discussed with Lynne Gavin PA-C - Last ECHO on 07/14/18 with EF 35-40% - Potassium supplementation ordered for tomorrow am due to diuresis, K+ 3.7 today. (2) Hypoxia: - Now improved - Will check noc ox tonight to determine if pt needs home O2 at night, she is still requiring at rest although does not have it at baseline. Order 2-step tomorrow. (3) COPD (chronic obstructive pulmonary disease): - No current exacerbation - Will continue with scheduled nebs to avoid exacerbation however - Will not continue steroids to avoid side effects (4) Hyponatremia: - Stable at 138 today. Appears resolved. - Follow am prp (5) UTI (urinary tract infection): - Started cipro due to sx - UA appears like UTI, continue cipro. no urinary sx at present. (6) Persistent atrial fibrillation: - continue home meds - INR 4.0, will hold coumadin again today. Likely can resume on 10/28. (7) History of [place] (myocardial infarction): continue home meds (8) Ischemic cardiomyopathy: continue home meds (9) GERD (gastroesophageal reflux disease): continue home meds (10) Hypothyroidism: continue home meds (11) Hyperlipidemia: continue home meds (12) ICD (implantable cardioverter-defibrillator) in place: - S/p battery change by Dr. Hill on 10/09, steri-strip in place, healing well. (13) Anemia: - Hgb dropped from 12 to 10.7. Will monitor with am labs. Asx. (14) DVT prophylaxis: - Supratherapeutic on coumadin - INR 4.0 today, hold tonight. CODE: Conditional, ok with chest compression and defibrillation , not other means of acls, advanced airway or ventilation Dispo: Possible d/c tomorrow pending diuresis, noc ox testing, and INR therapeutic. (15) Chronic kidney disease, stage 3a: Supervising Physician Co-Signing Physician Notes Attending Attestation - Chart reviewed, care plan d/w RAZA Kramer. I agree w/ the valencia components of her documentation. Patient with recent generator change on biV ICD in late September by Dr Hill. Then developed hyponatremia and HCTZ was stopped due to such. Since then developed decompensated CHF. Symptoms improved today. ?UTI - remains on cipro. INR supratherapeutic - coumadin on hold. Repeat all labs in am. Follow urine cx. Continue diuretics for acute/chronic systolic CHF. Check TSH in am due to levothyroxine use. PT, OT evals. El Leach MD Subjective The patient was seen and examined this morning. Pt states she feels much better today compared to when she presented to the hospital. She is ambulating to the bathroom without any shortness of breath today. She notes that her first sx is SOB when she is fluid overloaded, and that she never feels swollen in her legs. She follows a low sodium diet, but does not specifically restrict the amount of fluids she drinks. She does not follow with a the heart failure clinic. She reports living at home with grandson. Review of Systems Review of Systems: Constitutional: No fever, sweats or chills Eyes: No diplopia, no worsening or blurred vision ENT: normal hearing, no trouble swallowing Respiratory: No cough, sputum, dyspnea at rest or on exertion Cardiovascular: No chest pain, tightness or palpitations Abdomen: No pain, nausea, vomiting, diarrhea or constipation Musculoskeletal: No joint pain, calf pain, swelling Neurologic: No weakness, numbness/tingling, or balance problems Psychiatric: No anxiety or depression Skin: No rash or itch Physical Exam Physical Exam: General: awake, alert, no apparent distress Head: Normocephalic, atraumatic ENT: PERRL, EOMI, no pharyngeal exudate, mucous membranes moist Chest: Clear to auscultation, on 2L via NC no adventitious breath sounds Cardiac: Regular rate and rhythm, no murmur, no JVD, normal peripheral pulses, good capillary refill Abdominal: NABS x 4 quadrants, soft, nontender to palpation, no rebound, guarding or tenderness Extremities: Normal inspection, no peripheral edema or erythema, calfs nontender to palpation Psych: Normal mood and affect Neuro: AAO x 3, strength intact bilaterally and related 5/5, no motor deficits, speech is clear, no peripheral sensory deficits Results & Data Vital Signs (Past 12 Hours) Vital Signs Temp Pulse Pulse Resp BP Pulse Ox 10/27/18 07:58 36.5 C 60 16 120/67 94 10/27/18 07:22 60 16 93 10/26/18 22:53 36.3 C L 65 16 93/52 L 92 PG Care Time/CCT Total # of Minutes Spent Total Time Spent with Patient: Total time spent is greater than 50% in coordination of care (as documented) at patient's floor/unit and/or counseling patient: (1) Congestive heart failure Heart failure chronicity: unspecified Heart failure type: unspecified Qualified Code(s): I50.9 - Heart failure, unspecified
[2018-10-27] MEDS ORDERED: FUROSEMIDE 20 MG in SYRINGE 0 ML IV SCH (09:00)
[2018-10-27] MEDS ORDERED: WARFARIN SOD 2.5 MG TAB PO SCH ×2 (09:00→16:00)
[2018-10-27] MEDS: EZETIMIBE 10 MG TABLET PO SCH (21:35)
[2018-10-27] MEDS ORDERED: DOCUSATE SODIUM/SENNA 50/8.6MG TAB PO PRN (22:18)
[2018-10-28] MEDS: ALBUT/IPRATROP 3MG/0.5MG NEB 3 ML VIAL NEB SCH ×4 (03:24→15:31)
[2018-10-28] MEDS: LEVOTHYROXINE SODIUM 100 MCG TABLET PO SCH (06:18)
[2018-10-28 07:07] LABS: Hematocrit (blood only) 33.5 % (37-47); Hemoglobin 11.2 g/dL (12.0-16.0); Mean Corpuscular Hgb Conc 33.4 g/dL (32-36); Mean Corpuscular Volume 90.3 fL (80-100); Mean Platelet Volume 8.5 fL (7.4-10.4); Platelet Count 198 K/uL (130-400); RDW Coefficient of Variation 14.7 % (11.5-14.5); RDW Standard Deviation 47.7 fL (36.4-46.3); Red Blood Count 3.71 M/uL (4.2-5.4); White Blood Count 13.77 K/uL (4.8-10.8)
[2018-10-28] MEDS: BUDESONIDE 0.5 MG/2 ML VIAL (PULMICORT) INH SCH (07:09)
[2018-10-28 07:30] LABS: Prothrombin Time 36.4 Seconds (9.0-12.0)
[2018-10-28 07:39] LABS: Albumin Level 2.6 gm/dl (3.4-5.0); BUN Creatinine Ratio 23.5 (10-20); Calcium 8.9 mg/dl (8.5-10.1); Est GFR (African American) 40.3; Est GFR (Non-African American) 34.8; Potassium 4.1 mmol/L (3.5-5.1)
[2018-10-28 07:50] LABS: Albumin Globulin Ratio 0.5 (0.9-2); Bilirubin,Total 0.4 mg/dl (0.2-1); Globulin 5.1 gm/dl (2.5-4.0); Total Protein 7.7 gm/dl (6.4-8.2)
[2018-10-28] MEDS: CARVEDILOL 25 MG TAB PO SCH (08:23)
[2018-10-28] MEDS: AMIODARONE 200 MG TAB PO SCH (08:24)
[2018-10-28] MEDS: CIPROFLOXACIN 250 MG TAB PO SCH (08:24)
[2018-10-28] MEDS: ASPIRIN 81 MG ECTAB PO SCH (08:26)
[2018-10-28] MEDS: FOLIC ACID 1 MG TAB PO SCH (08:27)
[2018-10-28] MEDS: MULTIVITAMIN TAB PO SCH (08:28)
[2018-10-28] MEDS: PANTOprazole 40 MG TAB PO SCH (08:29)
[2018-10-28] MEDS: CHOLECALCIFEROL 1,000 UNITS TAB PO SCH (08:29)
[2018-10-28] MEDS ORDERED: FUROSEMIDE 20 MG TAB PO SCH (09:00)
[2018-10-28 12:26] LABS: INR 3.9 (0.9-1.1)
--- NOTE | 2018-10-28 16:29 | Heart Failure Consultation ---
Date of Consultation October 28, 2018 Assessment & Plan (1) Congestive heart failure: Patient appears well compensated and euvolemic at this time. Her recent decompensation is likely a result of stopping her outpatient diuretic regimen. She is currently tolerating Lasix 20 mg daily and will be discharged home on this dose. We will maintain close follow-up with heart failure program to closely monitor her volume status and labs. Plan on BMP and magnesium levels next week prior to her appointment. Patient is familiar with her heart failure diagnosis and management. She typically documents her weights at home on a daily basis. Her dry weight is 129 lb. on her home scale. She was instructed to notify the heart failure program for a 2-3 lb weight gain overnight or more than 5 lb in 1 week. She was given our contact information today. She should continue to follow a low-sodium diet, less than 2000 mg daily. She should continue fluid restriction, less than 1500 mL per day. (2) ICD (implantable cardioverter-defibrillator) in place: Incision is healing well without signs of infection. Follow-up with Dr. Hill as scheduled. (3) Ischemic cardiomyopathy: Her last echocardiogram was in July 2018 which demonstrated an EF of 35- 40%. Continue carvedilol 25 mg twice daily. Losartan was recently discontinued due to hypotension. Her blood pressures have been stable during her hospitalization. Could consider restarting or initiating Entresto as an outpatient if her pressures and volume status are stable. Disposition: Follow-up early next week with heart failure program. Plan on lab s prior to appointment. She was instructed to call the heart failure program if she has any worsening symptoms before that time. Thank you for consultation. History of Present Illness Attending Physician: El Sera Leach Patient is an 78-year-old female with a history of CAD s/p CABG, ischemic cardiomyopathy (LVEF 35% to 40%) s/p Bi-V AICD implantation in 2008 with generator change 10/09/18, paroxysmal atrial fibrillation, dyslipidemia, COPD, and a history of paroxysmal ventricular tachycardia. 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 Dr. Ayoub is her head filter press tender. She presented to the ED with complaints of dyspnea, orthopnea, and 2 lb weight gain. She typically takes Dyazide as an outpatient but had been instructed to stop her diuretic due to hyponatremia approximately 2 weeks ago. During that time the patient has developed progressive dyspnea. Chest x-ray demonstrated ICD, cardiomegaly, and evidence of congestive heart failure pulmonary edema. Pneumonia could not be excluded. She had small pleural effusions. ProBNP was elevated at 3677. Troponins were negative. Echocardiogram done in July 2018 demonstrates EF 35-40%. In the ED she was treated with duo nebs, Lasix, and Solu-Medrol which resulted in relief of her symptoms. She was also found to have a UTI. Patient is currently comfortable resting in bed and is anxious for discharge. She reports her shortness of breath has improved however she met criteria for oxygen at discharge after 2 step today. She reports that her orthopnea has improved. She did not have any evidence of lower extremity edema at any point. Her fluid balance has remained essentially neutral during her stay and her weights are unchanged. She reports she is familiar with her heart failure diagnosis and typically documents her daily weights (dry weight 129 lb) and follows a low-sodium diet. She is currently tolerating oral Lasix 20 mg. Allergies Allergy/AdvReac Type Severity Reaction Status Date / Time Penicillins Allergy Severe "CAN'T Verified 10/09/18 06:24 BREATHE" Home Medications Home Medications Medication Instructions Recorded Confirmed Type amiodarone 100 mg PO DAILY 08/21/18 10/26/18 History aspirin [Aspir-81] 81 mg PO DAILY 08/21/18 10/26/18 History budesonide 2 ml INHALATION BID 08/21/18 10/26/18 History carvedilol 25 mg PO BIDM 08/21/18 10/26/18 History cholecalciferol (vitamin D3) 2,000 unit PO DAILY 08/21/18 10/26/18 History [Vitamin D3] esomeprazole magnesium [Nexium] 20 mg PO DAILY 08/21/18 10/26/18 History ezetimibe-simvastatin [Vytorin 1 tab PO HS 08/21/18 10/26/18 History 10-80] folic acid 1 mg PO DAILY 08/21/18 10/26/18 History levothyroxine 100 mcg PO DAILY 08/21/18 10/26/18 History multivitamin [Multiple Vitamins] 1 tab PO QAM 08/21/18 10/26/18 History nitroglycerin 0.4 mg SUBLINGUAL UD PRN 08/21/18 10/26/18 History ciprofloxacin HCl 250 mg PO DAILY 1 Days #1 tab 10/28/18 Rx furosemide [Lasix] 20 mg PO DAILY #30 tab 10/28/18 Rx warfarin [Coumadin] 1 mg PO DAILY #0 tab 10/28/18 10/26/18 Rx Patient History Medical History ICD (implantable cardioverter-defibrillator) in place Hyponatremia UTI (urinary tract infection) Persistent atrial fibrillation History of ID (myocardial infarction) Ischemic cardiomyopathy COPD (chronic obstructive pulmonary disease) A-fib (Chronic) CAD (coronary artery disease) (Chronic) Dyslipidemia (Chronic) GERD (gastroesophageal reflux disease) (Chronic) Hypothyroidism (Chronic) Pacemaker Social History Preferred Language: [place] Communication Ability: Effective Beliefs That Will Affect Care: None Current Living Situation: Alone Feels Safe at Home: Yes Smoking Status: Former smoker Second Hand Exposure: No Hx Alcohol Use: No Hx Substance Use: No Review of Systems Review of Systems: As noted in HPI. All other ROS are reviewed and otherwise negative at this time. Physical Exam Physical Exam: Constitutional: Alert, oriented, in no acute distress HEENT: Head is atraumatic and normocephalic. EOMs intact. Sclera anicteric. Face is symmetric. No perioral cyanosis. Mucous membranes moist. Neck: Supple, no JVD Pulmonary: Normal respiratory effort, clear to auscultation bilaterally Chest: Palpable device in left subclavian fossa. Incision site is healing well with no evidence of hematoma or infection Cardiac: Regular rate and rhythm. Normal S1 and S2, no gallops, no rubs, no murmurs Extremities: 2+ radial pulses bilaterally. 2+ posterior tibialis pulses bilaterally. No pitting edema. No cyanosis or clubbing. Abdomen: Normal bowel sounds, soft, non-tender, no abdominal mass palpated Skin: Normal skin color, turgor, and pigmentation, no rash, no skin lesions Neurological: Patient is awake, alert, and oriented. Pleasant and cooperative. Answers questions appropriately. Speech is clear. Normal movement in all 4 extremities. Gait pattern is unremarkable. Results & Data Vital Signs (Past 12 Hours) Vital Signs Temp Pulse Pulse Pulse Pulse Pulse Pulse 10/28/18 15:46 36.7 C 61 61 10/28/18 14:58 36.7 C 61 10/28/18 11:33 69 74 65 63 10/28/18 11:12 67 07/16/19 07:23 36.7 C 60 07/16/19 07:13 60 Resp Resp Resp Resp Resp BP Pulse Ox 10/28/18 15:46 18 126/76 92 10/28/18 14:58 18 126/76 92 10/28/18 11:33 18 18 16 16 10/28/18 11:12 18 90 10/28/18 07:23 18 132/67 90 10/28/18 07:13 18 93 Pulse Ox Pulse Ox Pulse Ox Pulse Ox 10/28/18 15:46 10/28/18 14:58 10/28/18 11:33 96 85 L 95 94 10/28/18 11:12 10/28/18 07:23 10/28/18 07:13 (1) Congestive heart failure Heart failure chronicity: unspecified Heart failure type: unspecified Qualified Code(s): I50.9 - Heart failure, unspecified
--- NOTE | 2018-10-28 16:34 | Discharge Summary ---
Date of Service October 28, 2018 Admission HPI Per Admitting Provider 78 y/o F c/o SOB. Pt states that she has had some SOB with exertion for the last 2-3 weeks. This would resolve with rest though. She states that it was a bit worse since Saturday, but still resolving with rest. Her water pill was stopped about [address] Hill due to hypoNa. She states that she was told that if she started to have SOB, to call the office. She states that she called the office and nursing told her that this was not a cardiology issue and to call her PCP. She called her PCP who wanted her to come the ED on Saturday, but she states that she did not want to do that due to a family reunion on Saturday. She was able to go to the reunion but did not move around at all once she arrived. She states that last night she started having SOB at rest and could not control it. It was worse this AM, so she came to the ED. Pt has no hx of home O2 use. She has a nebulizer at home and tried this, but no help. Pt was started on O2 in the ED and was given lasix 20mg IV, nebs, solumedrol. She states she is feeling much better. No SOB at rest, but she has not been OOB for a trial with exertion. Pt states that she used to take her water pill (uncertain of the name, old notes suggest triamterene/HCTZ 37.5/25) QOD due to feeling too "dried out" when taking every day. She had recently been taking it QD due to the worsening SOB, but then it was stopped for hypoNa. She states she was lightheaded with the hypoNa and that has since resolved. Pt had her pacer battery changed out on 10/09 and no issues with this. Pt states that her losaran was recently stopped due to BP in the 80s. She has been in the 110s since d/c of losartan. Pt states that she noted burning with urination last night. She had left over cipro, so she took a dose last night and again this AM until she could be seen. She has hx of UTIs. Pt denies fever, chest pain, abd pain, n/v/c/d, LE pain or swelling. She states she never gets LE swelling with her CHF. Admission Exam Per Admitting Provider GENERAL: Awake, alert, well-appearing, in no acute distress HENT: Normocephalic, atraumatic. Oropharynx unremarkable. EYES: Normal conjunctiva. Sclera non-icteric. NECK: Inspection normal. Non-tender. Supple and full ROM. No nuchal rigidity. CARDIAC: +S1S2 RRR, no murmurs. Left upper chest AICD in place. RESPIRATORY: Clear to auscultation. No wheezes or rales. Normal respiratory effort. GI: +BS, soft, non-distended. No tenderness to palpation. No rebound or guarding. EXTREMITIES: No pedal edema or calf tenderness. Moving all extremities naturally and easily. There is a palpable purpura versus petechial rash going from approximately the patella extending down to the mid-metatarsal region bilaterally but primarily anteriorly. There is a healing contusion to the left mid-marshall. There is a separate circular rash over the left forefoot. All of these areas are non-tender to palpation, not warm, no obvious breaks in the skin, and not blanchable. NEURO: No gross neuro deficits with the exception that the patient says palpation feels slightly different over the areas of rash on her shins. Principal Diagnosis acute/chronic systolic CHF Discharge Exam General: Resting comfortably HEENT: NC/AT; PERRLA with EOMI; [place] conjunctiva, MMM. No erythema of posterior pharynx Neck: Supple and nontender Cardiac: RRR Lungs: on room air; CTA bilaterally Abdomen: Bowel normoactive X 4; Nontender to palpation Extremities: Warm. No edema present Neuro: No focal weakness Skin: No rash Discharge Data Allergies Allergy/AdvReac Type Severity Reaction Status Date / Time Penicillins Allergy Severe "CAN'T Verified 10/09/18 06:24 BREATHE" Consultations 10/26/18 14:22 ED Decision to Admit Stat 10/26/18 14:53 Consult Case Management - Discharge Planning Routine 10/28/18 09:34 Consult Cardiology Routine Ordered Studies CXR 10/26/18 Hospital Course (1) Congestive heart failure: Exacerbation of acute systolic CHF. Improved with diuresis of Lasix 20 mg IV. Switched to Lasix 20 mg PO daily at discharge. Likely related to recent d/c of triamterene/HCTZ d/t hyponatremia. Continued home Coreg; Losartan was recently discontinued as outpatient, not currently on ACEI or ARB. Cardiology consulted, will follow up with the HF clinic in 1 week. Last ECHO on 07/14/18 with EF 35-40%. Discharged to home on 10/28, appears to be well compensated. (2) Hypoxia: Overnight pulse ox completed, did not qualify. 2 step, qualified for 2L with ambulation (also likely related to COPD) (3) COPD (chronic obstructive pulmonary disease): No current exacerbation Is requiring 2L with ambulation on 2 step, arranged at home. (4) Hyponatremia: Stable, followed via lab work. Discharge Na 137. (5) UTI (urinary tract infection): U/a positive, UC pending. Will complete 3 day course of Cipro PO. (6) Persistent atrial fibrillation: Continued home meds. Held Coumadin for supratherapeutic INR -- will resume at 1 mg daily this evening (previously on 2.5 mg daily) and f/u for INR in 3 days. (7) History of FL (myocardial infarction): Continued home meds. (8) Ischemic cardiomyopathy: Continued home meds. (9) GERD (gastroesophageal reflux disease): Continued home meds. (10) Hypothyroidism: Continued home levothyroxine. (11) Hyperlipidemia: Continued home statin. (12) ICD (implantable cardioverter-defibrillator) in place: S/p battery change by Dr. Hill on 10/09, steri-strip in place, healing well. (13) Anemia: Hemoglobin below baseline but stable. (14) Chronic kidney disease, stage 3a: Renally dosed all meds. (15) DVT prophylaxis: Resumed Coumadin on day of discharge. Pt. was stable for discharge to home on 10/28/18. Will f/u with PCP and HF clinic. Total Time Total Time Spent Total Time Spent (In Minutes): >30 minutes Total Time Includes: Examination of the Patient, Discharge Planning, Medication Reconciliation, Communication With Other Providers and Other Discharge Plan Discharge Items Patient Disposition: Home - Self-Care Reason For Visit: CHF EXACERBATION Discharge Diagnosis: CHF Exacerbation Condition: Good Discharge Goals: Improve disease control, Improve function, Increase indep endence and Prevent disease Activity: As commented below Exercise/Sports: Wait until after follow-up appointment Non-emergency contact: Primary Care Provider Call non-emergency contact if: you have any medication questions, your symptoms worsen, your pain is not controlled, your pain is worsening, your pain is unusual for you, your pain is concerning for you and you have a fever Follow-up/Referrals: Blanca Gavin PA-C [Physician Learning Support Services Director] - 11/05/18 10:30 am (Please, follow up at [facility] with Lynne Gavin PA-C on SaturdayNovember 05 at 10:30 am. *The office is located in [address] of [facility]. This is the big building next to this hospital. If you need to change this appointment, call the office at [phone].) Armani Wilkes [Primary Care Provider] - 10/31/18 2:40 pm (Please, follow up with Armani Wilkes PA-C on SaturdayOctober 31 at 2:40 pm. *If you need to change this appointment, call the office at [phone].) Diet: Heart Healthy Add Provider Instructions: 1. Congestive Heart Failure Exacerbation * Please take Lasix 20 mg daily at home -- prescription for medication was sent to your pharmacy. * Continue all other medications as prescribed, including Coreg 25 mg twice daily. * Continue to wear 2 liters oxygen with ambulation. * Please follow up with the heart failure clinic as scheduled. * Please follow up with your primary care provider in 7-10 days. * Additional heart failure instructions as noted below. Call 911 and go to the Emergency Room if: * You have tightness or pain in your chest that does not go away with rest or Nitroglycerin * You are very short of breath even with rest Call your doctor if any of the following symptoms or problems start or get worse: * Shortness of breath or difficulty breathing * Wake up at night short of breath * Chest pain * Cough * Swelling of your hands, fee, or legs * More fatigued or tired with your normal activity * Palpitations - sudden fast heart beats WEIGHT * Weigh yourself every morning after using the bathroom. * Use the same scale. * Wear the same amount of clothing. * Write your weight down on your chart. * Call your doctor if you gain more than 2-3 pounds in 1-2 days. MEDICATIONS * Use this discharge instruction sheet for instructions. * Take your medications at the time your doctor ordered. * Do not skip a dose of your medicines. * If you miss a dose of medicine, take as soon as possible, but DO NOT DOUBLE A DOSE. * Read your medicine information when you get home. * Know all of the side effects of your medicine. * Call your doctor's office if you have any side effects. * Be sure all of your doctors know what medicine and herbs you take (including cold, flu, and herbal medicine). * Pain Medicine: If you do not get relief from your pain, please call your doctor for help. Take the following with you to your follow-up doctor appointments: * Weight Chart * Medication List * List of questions Do not drink excessive alcohol, beer or wine. 2. Atrial Fibrillation * Please take Coumadin 1 mg daily at home. * You will need to follow up for a PT/INR level in 3 days to monitor for improvement in supratherapeutic levels. 3. Urinary Tract Infection * Please take Ciprofloxacin 250 mg daily -- you will need one dose on 10/29/18 and then course will be completed. Prescription was sent to your pharmacy. Prescriptions: New furosemide [Lasix] 20 mg tablet 20 mg PO DAILY Qty: 30 RF: 1 Continued multivitamin [Multiple Vitamins] Tablet 1 tab PO QAM RF: 0 carvedilol 25 mg tablet 25 mg PO BIDM RF: 0 amiodarone 200 mg Tablet 100 mg PO DAILY RF: 0 aspirin [Aspir-81] 81 mg Tablet,Delayed Release (Dr/Ec) 81 mg PO DAILY RF: 0 levothyroxine 100 mcg tablet 100 mcg PO DAILY RF: 0 budesonide 0.5 mg/2 mL suspension for nebulization 2 ml inhalation BID RF: 0 nitroglycerin 0.4 mg Tablet, Sublingual 0.4 mg sublingual UD PRN (Reason: Chest Pain) RF: 0 folic acid 1 mg Tablet 1 mg PO DAILY RF: 0 esomeprazole magnesium [Nexium] 20 mg Capsule,Delayed Release(Dr/Ec) 20 mg PO DAILY RF: 0 ezetimibe-simvastatin [Vytorin 10-80] 10-80 mg Tablet 1 tab PO HS RF: 0 cholecalciferol (vitamin D3) [Vitamin D3] 2,000 unit Tablet 2,000 unit PO DAILY RF: 0 Changed warfarin [Coumadin] 2.5 mg Tablet 1 mg PO DAILY Qty: 0 RF: 0 Discontinued ciprofloxacin HCl [Cipro] 250 mg Tablet 250 mg PO BID RF: 0 Stand-Alone Forms: My [facility] Discharge Orders: Discharge Order (Routine); Ordered 10/28/18 Ordered By: Manju Lion Admission Data Admit Date/Time: 10/26/18 13:18 Attending Provider: El Leach Admit Provider: Stephanie León Primary Care Provider: Armani Wilkes Other Providers: Shelby Kramer ; Manju Lion ; Blanca Gavin Service: Medical Other Interventions: Discharge Summary Assessment (RN) Last Done: 10/28/18 15:46 Pending Studies at Discharge: Yes Studies:: Urine culture is pending. DC Date/Time DO NOT enter until pt leaves facility: 10/28/18 16:15 Supervising Physician Co-Signing Physician Notes Attending Discharge Note and Attestation - Pt seen/examined, chart reviewed, discharge care plan d/w PA Manju Lion. I agree w/ the valencia components of her discharge summary. 78yo female with history of chronic systolic CHF who presented with decompensated CHF. Diuresed well with IV lasix and obtained euvolemia within brief period of time. Suspect that recent discontinuation of HCTZ led to this decompensation as she had not had acute/chronic CHF in the past. Also qualified for home O2 WITH AMBULATION only. Perhaps related to COPD? No significant pulmonary HTN noted on most recent echo. discharge exam - gen - NAD, a/o x 3 neck - no JVD heart - RRR, s1, s2 lungs - CTA b/l abd - soft NT BS+ ext - no edema She will d/c home on daily lasix 20mg daily. Fluid & salt restriction along with daily weights advised. f/u with CHF clinic recommended. El Leach MD
== END 2018-10-28 16:15 | disposition home or self-care (01) | DRG 292 ==
LOC: ED 11:15 → SUATTDRO 13:18 → 2N 13:18
DX: N39.0 Urinary tract infection, site not specified; K21.9 Gastro-esophageal reflux disease without esophagitis; Z79.51 Long term (current) use of inhaled steroids; Z87.891 Personal history of nicotine dependence; Z79.899 Other long term (current) drug therapy; R09.02 Hypoxemia; I48.1 Persistent atrial fibrillation; I25.2 Old myocardial infarction; Z79.82 Long term (current) use of aspirin; Z88.0 Allergy status to penicillin; N18.3 Chronic kidney disease, stage 3 (moderate); Z95.810 Presence of automatic (implantable) cardiac defibrillator; I50.23 Acute on chronic systolic (congestive) heart failure; E03.9 Hypothyroidism, unspecified; I25.5 Ischemic cardiomyopathy; Z79.01 Long term (current) use of anticoagulants; D64.9 Anemia, unspecified; E87.1 Hypo-osmolality and hyponatremia; Z86.73 Personal history of transient ischemic attack (TIA), and cerebral infarction without residual deficits; J44.9 Chronic obstructive pulmonary disease, unspecified; T50.2X6A Underdosing of carbonic-anhydrase inhibitors, benzothiadiazides and other diuretics, initial encounter; Z95.1 Presence of aortocoronary bypass graft; I25.10 Atherosclerotic heart disease of native coronary artery without angina pectoris; E78.5 Hyperlipidemia, unspecified

== ENCOUNTER 2019-08-22 08:22 | Observation (INO) ==
[2019-08-22 08:54] LABS: Basophils # (auto) 0.01 K/uL (0-0.2); Basophils % (auto) 0.1 %; Eosinophils # (auto) 0.01 K/uL (0-0.5); Eosinophils % (auto) 0.1 %; Hematocrit (blood only) 37.6 % (37-47); Hemoglobin 12.2 g/dL (12.0-16.0); Immature Granulocytes # (auto) 0.01 K/uL (0.00-0.02); Immature Granulocytes % (auto) 0.1 %; Lymphocytes # (auto) 2.99 K/uL (1.2-3.4); Lymphocytes % (auto) 37.1 %; Mean Corpuscular Hemoglobin 29.1 pg (25-34); Mean Corpuscular Hgb Conc 32.4 g/dL (32-36); Mean Corpuscular Volume 89.7 fL (80-100); Mean Platelet Volume 10.4 fL (7.4-10.4); Monocytes # (auto) 0.65 K/uL (0.11-0.59); Monocytes % (auto) 8.1 %; Neutrophils # (auto) 4.39 K/uL (1.4-6.5); Neutrophils % (auto) 54.5 %; Platelet Count 160 K/uL (130-400); RDW Coefficient of Variation 15.9 % (11.5-14.5); RDW Standard Deviation 52.4 fL (36.4-46.3); Red Blood Count 4.19 M/uL (4.2-5.4); White Blood Count 8.06 K/uL (4.8-10.8)
--- NOTE | 2019-08-22 08:54 | Emergency Department Note ---
Impression & Plan Implantable cardioverter-defibrillator (ICD) discharge, Chest pain ED Provider Note Provider: Rajinder Villarreal MD DATE OF SERVICE: 08/22/2019 CHIEF COMPLAINT: Shortness of breath, dizzy, defibrillator HISTORY OF PRESENT ILLNESS: Patient is a 79-year-old female with a past medical history of CABG, atrial fibrillation with prior amiodarone toxicity, pacemaker, CKD, UTI, CHF, GERD presenting today via ambulance with report around 530 she got out and felt a little bit of palpitations weirdness in her chest. Around 6 AM moved to the bathroom to have a bowel movement and became shortness of breath and dizzy. Patient states she was sitting there and felt her defibrillator fire. Afterwards transient episode of a slight odd feeling in her chest that has since resolved. Denies a history of having her pacemaker fired before. Denies any chest pain or shortness of breath now. Patient occasionally uses nasal oxygen but denies any recent travel or fever. Was supposed to have pacemaker and cardiology follow-up recently and the pacemaker battery is replaced this past October. Again denies current pain. Denies current symptoms. Patient is currently on a steroid burst for COPD. Patient is on Coumadin. Other than the steroids no recent changes. No recent antibiotics. REVIEW OF SYSTEMS: A total of 10 review of systems was obtained and negative except as stated above in the HPI. PAST MEDICAL HISTORY: As noted above MEDICATIONS: Reviewed medication list and include aspirin, Coumadin, carvedilol, prednisone, Entresto, Synthroid SOCIAL HISTORY: Lives at home alone, former smoker PHYSICAL EXAM: GENERAL: alert and oriented in no acute distress on stretcher Head: normocephalic and atraumatic EYES: No injection, discharge or icterus. NECK: Trachea midline. Supple. ENT: Mucous membranes pink and moist. LUNGS: Airway patent. No retractions. Breath sounds clear with good air entry bilaterally. HEART: Regular rate and irregular rhythm. No chest wall tenderness ABDOMEN: Soft and non-tender, without guarding or rebound. SKIN: Acyanotic, warm, dry, without rashes EXTREMITIES: Without swelling, tenderness or deformity NEUROLOGICAL: No focal deficits. No aphasia. No facial droop or slurred speech. Normal strength and tone in the extremities. Sensation to gross touch normal. Ambulatory. EKG: Ventricularly paced rhythm at 84 bpm, appears to be atrially sensed. QTC 515. PVC noted. Compared to previous from October 26 of last year does not appear to be AV paced at this time. CONTINUOUS CARDIAC MONITORING: was ordered and showed a heart rate of 75 bpm in ventricular paced rhythm with some ectopy none of it sustained at this point. Patient's hypertension was referred to the hospitalist HOSPITAL COURSE: 845 Patient was first seen and H&P performed. 0952 Patient reassessed and updated. Patient was endorsing some soreness of her upper chest now and shortness of breath that has been slightly improving 1028 Patient's laboratory studies and imaging reviewed. Discussed awaiting pacemaker data. Patient's chest soreness and squeeze is now minimal. 1058 discussed with [facility] for further evaluation Differential includes Premature contractions, electrolyte abnormality, cardiac dysrhythmia, thyroid dysfunction, pulmonary embolism, infection, gastrointestinal, as well as other pathologies. IMPRESSION/MEDICAL DECISION MAKING: Patient presents after defibrillator firing earlier today and an odd sensation just prior during and after the event. Has a history of heart failure and atrial fibrillation currently anticoagulated. No recent illnesses. Is currently on a steroid burst for COPD exacerbation which is improving according to her. Pacemaker was interrogated. Basic labs were checked. Ordered her home dose of carvedilol as she has not yet taken this this morning. Patient denies any recent exertional chest pain symptoms in recent weeks or today. Chest x-ray without acute finding, may be slightly progressive signs of pulmonary edema but clinically volume status appears stable. Laboratory studies showed unremarkable CBC. INR therapeutic at 2.1. No significant electrolyte abnormality. Troponin is 0.015 detectable but abnormal; this appears to be new compared to previously undetectable values. TSH does appear very mild hyperthyroid state as the free T4 is also minimally elevated. Not in thyroid storm by any means. Pacemaker interrogation is having some technical complications transmitting the data to the company for evaluation. While awaiting this the patient had onset again of some mid chest discomfort and low but shortness of breath that was transient and improved while here. Given this recurrence of some possibly cardiac symptoms as well as the defibrillator firing earlier believe further cardiac evaluation here in the hospital is warranted. Still awaiting pacemaker interrogation. Discussed with the patient my recomm endation and she is in agreement. Patient is already anticoagulated to baby aspirin. Symptoms of chest squeezing discomfort are minimal on my second reevaluation. Lower suspicion this represents acute coronavirus infection. DIAGNOSIS: Pacemaker defibrillation, chest pain DISPOSITION: Patient was agreeable with this plan. Hospitalist to evaluate Past Med/Surg History Medical History (Updated 08/22/19 @ 10:14 by Rajinder Villarreal M.D.) Anemia Atrial fibrillation, persistent CAD (coronary artery disease) Cardiac defibrillator in place (09/2018) Cardiomyopathy CHF (congestive heart failure), NYHA class II Chronic kidney disease, stage 3a Chronic obstructive pulmonary disease Congestive heart failure DVT prophylaxis Dyslipidemia Dyspnea on exertion Elevated serum creatinine GERD (gastroesophageal reflux disease) History of NE (myocardial infarction) Hyponatremia Hypothyroidism Hypothyroidism Hypoxia (Resolved) ICD (implantable cardioverter-defibrillator) in place Ischemic cardiomyopathy On amiodarone therapy Pacemaker PMT (pacemaker-mediated tachycardia) Pneumonia Premature ventricular contractions Pulmonary emphysema Shortness of breath UTI (urinary tract infection) Ventricular tachycardia Surgical History (Updated 07/06/19 @ 16:46 by Julisa Richards) H/O: hysterectomy Hx of tonsillectomy Family History (Updated 07/08/19 @ 11:26 by Osvaldo Paige) Denies family history of Ovarian cancer Myocardial infarction Colorectal cancer Stroke Social History Preferred Language: Luxembourgish Communication Ability: Effective Side Trimmer Required: No Beliefs That Will Affect Care: None Current Living Situation: Alone Other Information That Helps Us Care for You: No Feels Safe at Home: Yes Safety Concerns: Feels Safe At This Time Smoking Status: Former smoker Smoking End Date: 25 years ago ; Number of Years Since Quit: 25 ; Second Hand Exposure: No ; Hx Alcohol Use: No Hx Substance Use: No Allergies Allergies Allergy/AdvReac Type Severity Reaction Status Date / Time Penicillins Allergy Severe "CAN'T Verified 08/22/19 08:54 BREATHE" Home Meds Home Medications Medication Instructions Recorded Confirmed aspirin [Aspir-81] 81 mg PO QAM 08/21/18 08/22/19 carvedilol 25 mg PO BIDM 08/21/18 08/22/19 cholecalciferol (vitamin D3) 2,000 unit PO QAM 08/21/18 08/22/19 [Vitamin D3] esomeprazole magnesium [Nexium] 20 mg PO QAM 08/21/18 08/22/19 ezetimibe-simvastatin [Vytorin 1 tab PO HS 08/21/18 08/22/19 10-80] folic acid 1 mg PO QAM 08/21/18 08/22/19 levothyroxine 100 mcg PO QAM 08/21/18 08/22/19 multivitamin [Multiple Vitamins] 1 tab PO QAM 08/21/18 08/22/19 nitroglycerin 0.4 mg SUBLINGUAL UD PRN 08/21/18 08/22/19 prednisone 10 mg PO DAILY 08/22/19 08/22/19 warfarin [Coumadin] 1 mg PO QAM 08/22/19 08/22/19 Previous Rx's Medication Instructions Recorded budesonide 0.5 mg/2 mL suspension 2 ml INHALATION BID #120 vial 12/30/18 for nebulization albuterol sulfate 2.5 mg INH Q4H PRN #360 ml 02/04/19 benzonatate 100 mg capsule 100 mg PO TID PRN #90 cap 04/17/19 ipratropium bromide 0.02 % 2.5 ml INH Q4H PRN #300 ml 04/21/19 solution for inhalation sacubitril 49 mg-valsartan 51 mg 1 tab PO BID #180 tab 06/17/19 tablet nebulizers #1 ea 07/07/19 Results & Data (ED) Vital Signs Vital Signs - 24 hr 08/22/19 08:31 08/22/19 08:43 08/22/19 10:31 Temperature 36.5 C Temperature Source Oral Pulse Rate 75 Pulse Rate [Apical] 77 Respiratory Rate 18 18 Blood Pressure 118/75 Blood Pressure [Left Arm] 105/52 L Blood Pressure Mean 89 Blood Pressure Mean [Left Arm] 69 Pulse Oximetry 97 96 99 Oxygen Delivery Method Room Air Room Air Room Air Sepsis Recent Fever Within 48 Hours No Sepsis New/Unexplained Change in Mental Status No Sepsis Action Taken by Nursing No Action Required Laboratory Data Result diagrams: 08/22/19 08:30 08/22/19 08:30 Lab Results 08/22/19 08/22/19 08/22/19 Range/Units 08:30 08:30 08:30 WBC 8.06 (4.8-10.8) K/uL RBC 4.19 L (4.2-5.4) M/uL Hgb 12.2 (12.0-16.0) g/dL Hct 37.6 (37-47) % MCV 89.7 (80-100) fL MCH 29.1 (25-34) pg MCHC 32.4 (32-36) g/dL RDW Std Deviation 52.4 H (36.4-46.3) fL RDW Coeff of Lachelle 15.9 H (11.5-14.5) % Plt Count 160 (130-400) K/uL MPV 10.4 (7.4-10.4) fL Immature Gran % (Auto) 0.1 % Neut % (Auto) 54.5 % Lymph % (Auto) 37.1 % Converse % (Auto) 8.1 % Eos % (Auto) 0.1 % Baso % (Auto) 0.1 % Immature Gran # (Auto) 0.01 (0.00-0.02) K/uL Neut # (Auto) 4.39 (1.4-6.5) K/uL Lymph # (Auto) 2.99 (1.2-3.4) K/uL Converse # (Auto) 0.65 H (0.11-0.59) K/uL Eos # (Auto) 0.01 (0-0.5) K/uL Baso # (Auto) 0.01 (0-0.2) K/uL PT 21.4 H (9.0-12.0) Seconds INR 2.1 H (0.9-1.1) APTT 30.8 (21.0-31.0) Seconds PTT Ratio 1.1 Sodium 142 (136-145) mmol/L Potassium 3.8 (3.5-5.1) mmol/L Chloride 111 H (98-107) mmol/L Carbon Dioxide 25 (21-32) mmol/L Anion Gap 6.0 (3-11) BUN 24 H (7-18) mg/dl Creatinine 1.12 (0.6-1.2) mg/dl Est Cr Clr Drug Dosing 36.9 ml/min Est GFR ( Amer) 53.4 Est GFR (Non-Af Amer) 46.0 BUN/Creatinine Ratio 21.5 H (10-20) Glucose 88 (70-99) mg/dl Calcium 8.7 (8.5-10.1) mg/dl Magnesium 2.2 (1.8-2.4) mg/dl Total Bilirubin 0.5 (0.2-1) mg/dl AST 19 (15-37) U/L ALT 17 (12-78) U/L Alkaline Phosphatase 55 (45-117) U/L Troponin I 0.015 (0-0.045) ng/ml Total Protein 7.0 (6.4-8.2) gm/dl Albumin 3.2 L (3.4-5.0) gm/dl Globulin 3.8 (2.5-4.0) gm/dl Albumin/Globulin Ratio 0.8 L (0.9-2) Lipase 73 (73-393) U/L TSH (0.300-4.500) uIu/ml Free T4 (0.8-1.6) ng/dl 08/22/19 Range/Units 08:30 WBC (4.8-10.8) K/uL RBC (4.2-5.4) M/uL Hgb (12.0-16.0) g/dL Hct (37-47) % MCV (80-100) fL MCH (25-34) pg MCHC (32-36) g/dL RDW Std Deviation (36.4-46.3) fL RDW Coeff of Lachelle (11.5-14.5) % Plt Count (130-400) K/uL MPV (7.4-10.4) fL Immature Gran % (Auto) % Neut % (Auto) % Lymph % (Auto) % Converse % (Auto) % Eos % (Auto) % Baso % (Auto) % Immature Gran # (Auto) (0.00-0.02) K/uL Neut # (Auto) (1.4-6.5) K/uL Lymph # (Auto) (1.2-3.4) K/uL Converse # (Auto) (0.11-0.59) K/uL Eos # (Auto) (0-0.5) K/uL Baso # (Auto) (0-0.2) K/uL PT (9.0-12.0) Seconds INR (0.9-1.1) APTT (21.0-31.0) Seconds PTT Ratio Sodium (136-145) mmol/L Potassium (3.5-5.1) mmol/L Chloride (98-107) mmol/L Carbon Dioxide (21-32) mmol/L Anion Gap (3-11) BUN (7-18) mg/dl Creatinine (0.6-1.2) mg/dl Est Cr Clr Drug Dosing ml/min Est GFR ( Amer) Est GFR (Non-Af Amer) BUN/Creatinine Ratio (10-20) Glucose (70-99) mg/dl Calcium (8.5-10.1) mg/dl Magnesium (1.8-2.4) mg/dl Total Bilirubin (0.2-1) mg/dl AST (15-37) U/L ALT (12-78) U/L Alkaline Phosphatase (45-117) U/L Troponin I (0-0.045) ng/ml Total Protein (6.4-8.2) gm/dl Albumin (3.4-5.0) gm/dl Globulin (2.5-4.0) gm/dl Albumin/Globulin Ratio (0.9-2) Lipase (73-393) U/L TSH 0.185 L (0.300-4.500) uIu/ml Free T4 1.81 H (0.8-1.6) ng/dl Administered Medications Discontinued Medications Carvedilol (Coreg) 25 mg PO NOW ONE Stop: 08/22/19 09:02 Last Admin: 08/22/19 09:48 Dose: 25 mg Documented by: [id number] Discharge Plan Visit Data *Final* Discharge Date/Time: 08/22/19 12:48 Chief Complaint: Cardiac Assessment Stated Complaint: sob/dizzy ED Provider: Rajinder Villarreal Discharge Problem: Implantable cardioverter-defibrillator (ICD) discharge, Chest pain Patient Disposition: Admitted As Inpatient Discharge Instructions Interventions: ED Discharge Assessment Last Done: 08/22/19 12:48 Discharge Problem: Chest pain Qualifiers: Chest pain type: unspecified Qualified Code(s): R07.9 - Chest pain, unspecified
[2019-08-22] MEDS ORDERED: carvediloL 25 MG TAB PO ONE (09:01)
[2019-08-22 09:02] LABS: Albumin Level 3.2 gm/dl (3.4-5.0); BUN Creatinine Ratio 21.5 (10-20); Calcium 8.7 mg/dl (8.5-10.1); Creatinine Clr Calc Pharmacy 36.9 ml/min; Est GFR (African American) 53.4; Magnesium 2.2 mg/dl (1.8-2.4); Potassium 3.8 mmol/L (3.5-5.1)
[2019-08-22 09:05] LABS: INR 2.1 (0.9-1.1); Partial Thromboplastin Ratio 1.1; Partial Thromboplastin Time 30.8 Seconds (21.0-31.0); Prothrombin Time 21.4 Seconds (9.0-12.0)
[2019-08-22 09:07] LABS: Albumin Globulin Ratio 0.8 (0.9-2); Bilirubin,Total 0.5 mg/dl (0.2-1); Globulin 3.8 gm/dl (2.5-4.0); Troponin I 0.015 ng/ml (0-0.045)
--- NOTE | 2019-08-22 09:25 | XRay Report ---
XR chest 1V portable CLINICAL HISTORY: 79 years-old Female presenting with Chest Pain, shortness of breath, history pneumo nicci. TECHNIQUE: Portable upright AP view of the chest was obtained. COMPARISON: 08/18/2019. FINDINGS: Left subclavian implanted cardiac defibrillator with leads to the right atrium, right ventricular ape x, and left ventricle via the coronary sinus. Scattered mediastinal surgical clips noted. Atheroscler osis of the aortic arch. Cardiac silhouette moderately enlarged. Mild pulmonary vascular prominence. Significant interstitial prominence with heterogeneity lung parenchyma. Lungs are overall mildly hype rinflated. Persistent blunting of the right costophrenic angle. Persistent patchy right upper lung pr edominant opacities similar to prior. These have been grossly stable over the past several months. Os teopenia may be present. Upper abdomen normal. IMPRESSION: 1. Grossly stable patchy infiltrates in the right upper lung, which are chronic. No new focal infilt rate. 2. Cardiomegaly with some degree of volume overload and congestive change, slightly worsened from pr ior. 3. Underlying emphysema present evidenced by hyperinflation. ACT 112: Negative or not required by law. Electronically signed by: Allen Lyons M.D. 08/22/2019 9:24 AM
[2019-08-22 09:27] LABS: Thyroid Stimulating Hormone 0.185 uIu/ml (0.300-4.500)
[2019-08-22 09:40] LABS: T4 Free Thyroxine 1.81 ng/dl (0.8-1.6)
--- NOTE | 2019-08-22 11:19 | History & Physical Report ---
Date of Service August 22, 2019 Assessment & Plan (1) Chest pain: - Admit to tele - Trend cardiac biomarkers, initial set was negative at 0.015 - EKG reviewed as above - Consider 2 D echo - last was completed on 05/07/19 showing reduced EF of 25 to 30%, Moderate to severe global hypokinesis of the LV, inferior wall akinesis, moderate MR, moderate TR, elevated right ventricular systolic pressure-will allow cardiology to determine if needed during this admission -Attempting to get pacemaker interrogated, ER has tried to contact [employer] however has not yet obtained the reading -PT/OT consulted -Consult cardiology (2) Cardiac defibrillator in place: (3) Implantable cardioverter-defibrillator (ICD) discharge: -Was replaced in summer 2018, originally placed 10 years ago -Await pacemaker interrogation remotely - last note from Dr. Gonzalez mentions a possible lead fracture in Feb 2019, but does not appear that the patient has had sustained afib here on monitors, if this pacemaker interrogation indicated possible lead issue versus misfire. -Cardiology consulted as above (4) Paroxysmal A-fib: -Does not appear to have any components of breakthrough atrial fibrillation on monitor here, however patient states she was in A. fib this morning -continue Coreg, missed morning dose but was given this in the ER today, continue. -Continue Coumadin, follow INR = 2.1, follow with daily labs (5) Congestive heart failure: Continue Entresto 51 mg BID, carvedilol 25 mg BID, baby aspirin daily (6) Ischemic cardiomyopathy: - hx of CABG 2002 with GONZALEZ- LAD, EF=25-30%, status post biventricular pacemaker/ICD (7) Dyslipidemia: -Continue Vytorin (8) GERD (gastroesophageal reflux disease): -Continue Nexium 20 mg daily (9) Hypothyroidism: -TSH 0.185, free T4 = 1.81, decrease levothyroxine from 100 mcg to 88 mcg QAM for now, follow-up with PCP upon discharge, recheck levels in 1 month. (10) Chronic obstructive pulmonary disease: -History of smoking 1-2 packs/day x 44 years, quit smoking 20 years ago -Early April had signs of respiratory tract infection and was treated with prednisone and Tessalon Perles. Severe cough developed May 16 and had a large amount of yellow mucus, CT of the chest revealed right upper lobe infiltrate compatible with pneumonia however at that point in time she had significantly improvement of patchy infiltrates seen in the left lung and right lower lobe. Question of possible aspiration, video swallow was completed on 06/17/2019. After this procedure the patient felt increased cough and yellow sputum production, and was placed on prednisone for 8 days and Levaquin x1 week. On~July 02 patient had developed a fever which ran between 101-103 for 6 days, severe aches, denies shortness of breath, she was NOT ordered a COVID-19 test or influenza, after 6 days fever broke and symptoms resolved. Has been willing feeling well since then until presented to pulmonary on 08/17/2019. -CXR reviewed and appears to be chronic findings (11) Pulmonary emphysema: -Patient has recently been into see Dr. barrientos for cough symptoms, was placed on a prednisone for 8 days, currently on day 4 of treatment. They have been discussing possible bronchoscopy in the near future however patient has been opposed to this procedure in the past, patient unable to afford inhalers and uses nebulizer machine at home, budesonide 0.5 twice daily, albuterol/ibuprofen pram as needed once daily - patient lives at home by herself, no known travel, no sick contacts or known COVID exposures, therefore low suspicion -Afebrile Patient is not hypoxic, O2 sats at 99% on room air -WBC equal 8K (12) DVT prophylaxis: -Coumadin CODE: Full Dispo: From home, likely to remain in the hospital x 1-2 days History of Present Illness Primary Care Provider: Armani Haywood This is a 79-year-old female with PMHx of systolic CHF, EF =25 to 30% as of 05/07/2019, ischemic cardiomyopathy, persistent atrial fibrillation, ICD implanted, COPD, emphysema, HLD, hypothyroidism, anemia, GERD who presents today for chest tightness sensation and states she was defibrillated this morning. The patient reports that she woke up at 530 this morning, felt that she needed to use the restroom to urinate, but did not quite feel herself. She describes it as a chest discomfort, denies pressure, denies pain, denies shortness of breath, so went back to bed for about 1 hour. Around 630 she got up about out of bed to make herself a cup of coffee and then still did not feel herself, the patient went to use the restroom to have a bowel movement. She reports imm ediately following bowel movement she became lightheaded and then felt her defibrillator shocked her. She called EMS. Upon presenting to the ER, she denies any sensation of chest pain, discomfort, lightheadedness, dizziness, shortness of breath and states she feels pretty much back to normal. She admits that she was in A. fib prior to having a bowel movement as she can sense the palpitations. Here she is not in A. fib but has a few PVCs on telemetry while sitting at bedside. Blood pressure is stable at 108/69, O2 sats are 99% on room air. She typically wears 2L O2 via NC at home during the day, not during sleep. She has not required an increase in O2 over the last week, however has been on a prednisone taper since 08/16 which was prescribed by Dr. 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 She had a chest x-ray on 08/20 which showed chronic findings of the right upper lobe. She has not been traveling, no known [facility] contacts, but admits that she was with her family approximately 1 week ago when the weather was nice and they were all outside. She did wear a mask during her visit, and did not touch any family members, or go into their house. She denies any fevers, chills or sweats. Allergies Allergy/AdvReac Type Severity Reaction Status Date / Time Penicillins Allergy Severe "CAN'T Verified 08/22/19 08:54 BREATHE" Home Medications Home Medications Medication Instructions Recorded Confirmed Type aspirin [Aspir-81] 81 mg PO QAM 08/21/18 08/22/19 History carvedilol 25 mg PO BIDM 08/21/18 08/22/19 History cholecalciferol (vitamin D3) 2,000 unit PO QAM 08/21/18 08/22/19 History [Vitamin D3] esomeprazole magnesium [Nexium] 20 mg PO QAM 08/21/18 08/22/19 History ezetimibe-simvastatin [Vytorin 1 tab PO HS 08/21/18 08/22/19 History 10-80] folic acid 1 mg PO QAM 08/21/18 08/22/19 History levothyroxine 100 mcg PO QAM 08/21/18 08/22/19 History multivitamin [Multiple Vitamins] 1 tab PO QAM 08/21/18 08/22/19 History nitroglycerin 0.4 mg SUBLINGUAL UD PRN 08/21/18 08/22/19 History budesonide 0.5 mg/2 mL suspension 2 ml INHALATION BID #120 vial 12/30/18 08/22/19 Rx for nebulization albuterol sulfate 2.5 mg INH Q4H PRN #360 ml 02/04/19 08/22/19 Rx benzonatate 100 mg capsule 100 mg PO TID PRN #90 cap 04/17/19 08/22/19 Rx ipratropium bromide 0.02 % 2.5 ml INH Q4H PRN #300 ml 04/21/19 08/22/19 Rx solution for inhalation sacubitril 49 mg-valsartan 51 mg 1 tab PO BID #180 tab 06/17/19 08/22/19 Rx tablet nebulizers #1 ea 07/07/19 08/18/19 Rx prednisone 10 mg PO DAILY 08/22/19 08/22/19 History warfarin [Coumadin] 1 mg PO QAM 08/22/19 08/22/19 History Past Med/Surg History Medical History (Updated 08/22/19 @ 10:14 by Rajinder Villarreal M.D.) Anemia Atrial fibrillation, persistent CAD (coronary artery disease) Cardiac defibrillator in place (09/2018) Cardiomyopathy CHF (congestive heart failure), NYHA class II Chronic kidney disease, stage 3a Chronic obstructive pulmonary disease Congestive heart failure DVT prophylaxis Dyslipidemia Dyspnea on exertion Elevated serum creatinine GERD (gastroesophageal reflux disease) History of [place] (myocardial infarction) Hyponatremia Hypothyroidism Hypothyroidism Hypoxia (Resolved) ICD (implantable cardioverter-defibrillator) in place Ischemic cardiomyopathy On amiodarone therapy Pacemaker PMT (pacemaker-mediated tachycardia) Pneumonia Premature ventricular contractions Pulmonary emphysema Shortness of breath UTI (urinary tract infection) Ventricular tachycardia Surgical History (Updated 07/06/19 @ 16:46 by Julisa Richards) H/O: hysterectomy Hx of tonsillectomy Family History (Updated 07/08/19 @ 11:26 by Osvaldo Paige) Denies family history of Ovarian cancer Myocardial infarction Colorectal cancer Stroke Social History Preferred Language: Turkish Communication Ability: Effective Cinder Pitman Required: No Beliefs That Will Affect Care: None Current Living Situation: Alone Other Information That Helps Us Care for You: No Feels Safe at Home: Yes Safety Concerns: Feels Safe At This Time Smoking Status: Former smoker Smoking End Date: 25 years ago ; Number of Years Since Quit: 25 ; Second Hand Exposure: No ; Hx Alcohol Use: No Hx Substance Use: No Review of Systems Review of Systems: Constitutional: No fever, sweats or chills Eyes: No diplopia, no worsening or blurred vision ENT: normal hearing, no trouble swallowing Respiratory: No cough, sputum, dyspnea at rest, + occasional dyspnea on exertion Cardiovascular: As per HPI, currently no chest pain, tightness or palpitations Abdomen: No pain, nausea, vomiting, diarrhea or constipation Musculoskeletal: No joint pain, calf pain, swelling Neurologic: No weakness, numbness/tingling, or balance problems Psychiatric: No anxiety or depression Skin: No rash or itch Physical Exam Physical Exam: General: awake, alert, no apparent distress Head: Normocephalic, atraumatic ENT: PERRL, EOMI, oral cavity not examined due to patient wearing a mask. Chest: + Pacemaker over left chest wall, clear to auscultation but diminished throughout, on room air with O2 sats of 99%, no wheezes or rales Cardiac: Regular rate and rhythm, no murmur, no JVD, normal peripheral pulses, good capillary refill, appears euvolemic Abdominal: NABS x 4 quadrants, soft, nontender to palpation, no rebound, guarding or tenderness Extremities: Normal inspection, no peripheral edema or erythema, calfs nontender to palpation Psych: Normal mood and affect Neuro: AAO x 3, strength intact bilaterally and rated 5/5, no motor deficits, speech is clear, no peripheral sensory deficits Skin: no rash or erythema Results & Data Results & Data ([facility]) Vital Signs (Past 12 Hours) Vital Signs Temp Pulse Pulse Resp BP BP Pulse Ox 08/22/19 10:31 77 18 105/52 L 99 08/22/19 08:43 96 08/22/19 08:31 36.5 C 75 18 118/75 97 Diagnostic Findings XR chest 1V portable CLINICAL HISTORY: 79 years-old Female presenting with Chest Pain, shortness of breath, history pneumonia. TECHNIQUE: Portable upright AP view of the chest was obtained. COMPARISON: 08/18/2019. FINDINGS: Left subclavian implanted cardiac defibrillator with leads to the right atrium, right ventricular apex, and left ventricle via the coronary sinus. Scattered mediastinal surgical clips noted. Atherosclerosis of the aortic arch. Cardiac silhouette moderately enlarged. Mild pulmonary vascular prominence. Significant interstitial prominence with heterogeneity lung parenchyma. Lungs are overall mildly hyperinflated. Persistent blunting of the right costophrenic angle. Persistent patchy right upper lung predominant opacities similar to prior. These have been grossly stable over the past several months. Osteopenia may be present. Upper abdomen normal. IMPRESSION: 1. Grossly stable patchy infiltrates in the right upper lung, which are chronic. No new focal infiltrate. 2. Cardiomegaly with some degree of volume overload and congestive change, slightly worsened from prior. 3. Underlying emphysema present evidenced by hyperinflation. ACT 112: Negative or not required by law. Electronically signed by: Allen Lyons M.D. 08/22/2019 9:24 AM ECG Additional Comments: 22-AUG-2019 08:24:36 [facility]-EDSTAT ROUTINE RETRIEVAL Ventricular-paced rhythm Biventricular pacemaker detected Abnormal ECG When compared with ECG of 26-OCT-2018 11:32, Vent. rate has increased BY 24 BPM 25mm/s 10mm/mV 150Hz 9.0.9 12SL 241 ALYSSA: 16 Referred by: Armani Haywood Unconfirmed Vent. rate 84 BPM FL interval * ms QRS duration 162 ms QT/QTc 436/515 ms P-R-T axes 79 -89 107 Code Status & VTE Plan Code Status Full code-discussed with the patient at bedside Supervising Physician Co-Signing Physician Notes Attending Attestation and Admission Note: Pt seen/examined, chart reviewed, care plan d/w RAZA Kramer. I agree w/ the valencia components of her documentation. 79yo female with chronic systolic CHF, ischemic cardiomyopathy, CAD, a.fib, AICD/pacer status, CKD stage 3, COPD, hypothyroidism - presents after episode of near syncope this am, palpitations, and her defibrillator firing this am. Upon awakening today she simply did not feel well. Had vague chest complaints as well as "burning in my throat." Had palpitations and checked her HR - it was 114bpm. Had bowel movement and during such felt lightheaded. Shortly after her defibrillator discharged. Also has noted worsening BREWER last few days with at least 2 pound weight gain. She is prescribed NC o2 at home and typically doesn't use it all the time but has been using it more frequently of late. PMH, PSH, allergies, meds, sochx, famhx - reviewed VSS, afebrile gen - NAD neck - mild JVD present heart - irregular, s1 s2, no murmur lungs - RUL fine rales; both bases fine rales posteriorly abd - soft NT ND BS+ no HSM ext - trace-1+ edema b/l, pulses 2+ b/l labs - Cr wnl K, mag wnl trop neg TSH suppressed; FT4 mildly elevated INR 2.1 cxr - pulm edema; chronic RUL infiltrate EKG - ventricularly paced rhythm A/P: 1. defibrillator discharge 2. acute/chronic systolic CHF (mild decompensation) 3. iatrogenic hyperthyroidism 4. CKD stage 3 5. CAD w/ prior CABG; nonspecific chest symptoms - due to CAD? due to arrhythmia? 6. h/o amiodarone toxicity 7. chronic RUL infiltrates on cxr - etiology? follows w/ pulmonary for this 8. COPD 9. prn NC O2 use pacer/ICD interrogation - v-tach ? other arrhythmia but inappropriate discharge? lasix 20mg IV x 1 for decompensated CHF serial trops cardiology consult due to #1 BMP am reduce synthroid to 88mcg/day - repeat TSH as outpatient 4-6 weeks El Leach MD PG Care Time/CCT Total # of Minutes Spent Total Time Spent with Patient: Total time spent is greater than 50% in coordination of care (as documented) at patient's floor/unit and/or counseling patient: Coding Level of Care Code 31129 Initial Inpt Care Lvl 3 Diagnoses Chest pain R07.9 Chest pain type: unspecified Cardiac defibrillator in place Z95.810 Implantable cardioverter-defibrillator (ICD) discharge Z45.02 Paroxysmal A-fib I48.0 Congestive heart failure I50.9 Heart failure chronicity: unspecified Heart failure type: unspecified Ischemic cardiomyopathy I25.5 Dyslipidemia E78.5 GERD (gastroesophageal reflux disease) K21.9 Hypothyroidism E03.9 Chronic obstructive pulmonary disease J44.9 Pulmonary emphysema J43.9 DVT prophylaxis Z29.9 (1) Congestive heart failure Heart failure chronicity: unspecified Heart failure type: unspecified Qualified Code(s): I50.9 - Heart failure, unspecified (2) Chest pain Chest pain type: unspecified Qualified Code(s): R07.9 - Chest pain, unspecified
[2019-08-22] MEDS ORDERED: ACETAMINOPHEN 325 MG TAB PO PRN (12:05)
[2019-08-22] MEDS ORDERED: ONDANSETRON INJ 2 MG/ML 2 ML VIAL IV PRN (12:05)
[2019-08-22] MEDS ORDERED: NITROGLYCERIN SL 0.4 MG/TAB TAB SL PRN (13:14)
[2019-08-22] MEDS ORDERED: predniSONE 10 MG TABLET PO STA (13:41)
[2019-08-22] MEDS ORDERED: POTASSIUM CHLORIDE 20 MEQ TABCR PO STA (14:21)
[2019-08-22] MEDS ORDERED: FUROSEMIDE 20 MG in SYRINGE 0 ML IV ONE (14:21)
[2019-08-22] MEDS ORDERED: FUROSEMIDE 40 MG/4 ML VIAL IV ONE (14:46)
[2019-08-22] MEDS ORDERED: WARFARIN SOD 1 MG TAB PO SCH (16:00)
[2019-08-22] MEDS: carvediloL 25 MG TAB PO SCH (17:27)
[2019-08-22] MEDS: BUDESONIDE 0.5 MG/2 ML VIAL (PULMICORT) INH SCH (19:08)
[2019-08-22] MEDS ORDERED: EZETIMIBE 10 MG TABLET PO SCH (21:00)
[2019-08-22] MEDS ORDERED: SIMVASTATIN 80 MG TAB PO SCH (21:00)
[2019-08-22] MEDS ORDERED: EZETIMIBE/SIMVASTATIN 10/80MG TAB PO SCH (21:00)
[2019-08-22] MEDS ORDERED: bisacodyL 5 MG TABEC PO PRN (21:09)
[2019-08-22] MEDS ORDERED: LORazepam 0.5 MG TAB PO STA (21:09)
[2019-08-22] MEDS ORDERED: LORazepam 0.5 MG TAB PO PRN (21:15)
[2019-08-22] MEDS: SACUBITRIL-VALSARTAN 49/51 MG TAB PO SCH (21:29)
--- NOTE | 2019-08-22 22:29 | Electrocardiogram Report ---
Test Reason : Blood Pressure : / mmHG Vent. Rate : 084 BPM Atrial Rate : 084 BPM P-R Int : 000 ms QRS Dur : 162 ms QT Int : 436 ms P-R-T Axes : 079 -89 107 degrees QTc Int : 515 ms Atrial-sensed ventricular-paced rhythm Biventricular pacemaker detected Abnormal ECG When compared with ECG of 26-OCT-2018 11:32, Vent. rate has increased BY 24 BPM Sinus rhythm has replaced atrial pacing Confirmed by Darrick England ([id number]) on 08/22/2019 10:29:34 PM Referred By: Armani Haywood Confirmed By:Darrick England
[2019-08-23 06:03] LABS: Hematocrit (blood only) 35.9 % (37-47); Hemoglobin 11.6 g/dL (12.0-16.0); Mean Corpuscular Hemoglobin 29.2 pg (25-34); Mean Corpuscular Hgb Conc 32.3 g/dL (32-36); Mean Corpuscular Volume 90.4 fL (80-100); Mean Platelet Volume 10.6 fL (7.4-10.4); Platelet Count 153 K/uL (130-400); RDW Coefficient of Variation 15.8 % (11.5-14.5); RDW Standard Deviation 52.7 fL (36.4-46.3); Red Blood Count 3.97 M/uL (4.2-5.4); White Blood Count 7.13 K/uL (4.8-10.8)
[2019-08-23] MEDS ORDERED: LEVOTHYROXINE SODIUM 88 MCG TABLET PO SCH (06:30)
[2019-08-23 06:41] LABS: Albumin Globulin Ratio 0.7 (0.9-2); Albumin Level 2.7 gm/dl (3.4-5.0); BUN Creatinine Ratio 29.4 (10-20); Bilirubin,Total 0.4 mg/dl (0.2-1); Calcium 8.8 mg/dl (8.5-10.1); Creatinine Clr Calc Pharmacy 35.3 ml/min; Est GFR (African American) 50.6; Est GFR (Non-African American) 43.7; Globulin 3.7 gm/dl (2.5-4.0); Potassium 4.5 mmol/L (3.5-5.1); Total Protein 6.4 gm/dl (6.4-8.2)
[2019-08-23] MEDS: BUDESONIDE 0.5 MG/2 ML VIAL (PULMICORT) INH SCH (07:13)
[2019-08-23] MEDS: SACUBITRIL-VALSARTAN 49/51 MG TAB PO SCH (08:32)
[2019-08-23] MEDS: carvediloL 25 MG TAB PO SCH (08:33)
[2019-08-23] MEDS ORDERED: ASPIRIN 81 MG ECTAB PO SCH (09:00)
[2019-08-23] MEDS ORDERED: predniSONE 20 MG TAB PO SCH (09:00)
[2019-08-23] MEDS ORDERED: CHOLECALCIFEROL 1,000 UNITS 25 MCG TAB PO SCH (09:00)
[2019-08-23] MEDS ORDERED: PANTOprazole 40 MG TAB PO SCH (09:00)
[2019-08-23] MEDS ORDERED: MULTIVITAMIN TAB PO SCH (09:00)
[2019-08-23] MEDS ORDERED: FOLIC ACID 1 MG TAB PO SCH (09:00)
--- NOTE | 2019-08-23 13:57 | Discharge Summary ---
Date of Service date of admission - August 22, 2019 date of discharge - August 23, 2019 Admission HPI Per Admitting Provider This is a 79-year-old female with PMHx of systolic CHF, EF =25 to 30% as of 05/07/2019, ischemic cardiomyopathy, persistent atrial fibrillation, ICD implanted, COPD, emphysema, HLD, hypothyroidism, anemia, GERD who presents today for chest tightness sensation and states she was defibrillated this morning. The patient reports that she woke up at 530 this morning, felt that she needed to use the restroom to urinate, but did not quite feel herself. She describes it as a chest discomfort, denies pressure, denies pain, denies shortness of breath, so went back to bed for about 1 hour. Around 630 she got up about out of bed to make herself a cup of coffee and then still did not feel herself, the patient went to use the restroom to have a bowel movement. She reports immediately following bowel movement she became lightheaded and then felt her defibrillator shocked her. She called EMS. Upon presenting to the ER, she denies any sensation of chest pain, discomfort, lightheadedness, dizziness, shortness of breath and states she feels pretty much back to normal. She admits that she was in A. fib prior to having a bowel movement as she can sense the palpitations. Here she is not in A. fib but has a few PVCs on telemetry while sitting at bedside. Blood pressure is stable at 108/69, O2 sats are 99% on room air. She typically wears 2L O2 via NC at home during the day, not during sleep. She has not required an increase in O2 over the last week, however has been on a prednisone taper since 08/16 which was prescribed by Dr. 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 She had a chest x-ray on 08/20 which showed chronic findings of the right upper lobe. She has not been traveling, no known COVID-19 contacts, but admits that she was with her family approximately 1 week ago when the weather was nice and they were all outside. She did wear a mask during her visit, and did not touch any family members, or go into their house. She denies any fevers, chills or sweats. Principal Diagnosis ICD discharge due to ventricular tachycardia Discharge Exam Constitutional well developed and well nourished; no acute distress and no altered mental status ENMT external ear and nose normal, oropharynx normal Respiratory no respiratory distress Auscultation: + rales (Fine, dry, right upper lobe; otherwise CTA b/l ) Cardiovascular Rate/Rhythm: regular rate and regular rhythm Heart Sounds: normal S1 and normal S2; no murmur Vessels: abdominal aortic pulse present, posterior tibial pulses present and dorsalis pedis pulses present; no JVD Extremities: no edema Gastrointestinal (Abdomen) normal bowel sounds, soft, nontender, no hepatosplenomegaly Psychiatric A+Ox3, euthymic affect Discharge Data Allergies Allergy/AdvReac Type Severity Reaction Status Date / Time Penicillins Allergy Severe "CAN'T Verified 08/22/19 08:54 BREATHE" Consultations Cardiology - Tyrell Healy MD Procedures Performed pacemaker/ICD interrogation Hospital Course (1) Implantable cardioverter-defibrillator (ICD) discharge: Following the patient's admission to the telemetry unit she underwent pacemaker/AICD interrogation. This showed that the rhythm just prior to the ICD firing was atrial fibrillation followed by ventricular tachycardia. She was seen in consult by Dr Darrick England from [facility] cardiology. He recommended initiation of digoxin 0.125mg once daily in addition to her other cardiac medications. She will follow-up with Dr Omero Ayoub, [facility] electrophysiology, a few days following discharge. (2) Ventricular tachycardia: As noted on pacemaker/AICD interrogation. This led to her AICD discharging on the day of admission. See discussion above. (3) Chronic systolic CHF (congestive heart failure): The patient had mild acute on chronic systolic CHF while hospitalized. She only required a single dose of IV lasix while here. She was compensated on examination on day of discharge. She was instructed to continue daily weights and use lasix on a PRN basis for weight gains. She will continue coreg BID and entresto. (4) Paroxysmal A-fib: Remains on coreg and coumadin. INR was therapeutic while here. Digoxin was instituted as recommended by Dr England. She will take digoxin 0.125mg once daily and will need a digoxin level in the week after discharge. (5) Hypothyroidism: TSH was suppressed, and free T4 was elevated, consistent with iatrogenic hyperthyroidism. Her dose was decreased to 88mcg daily. A new prescription was given at discharge. She will need repeat TSH in 4-6 weeks to ensure euthyroid state. (6) Chronic obstructive pulmonary disease: Was on a prednisone taper at time of admission. This was continued and she will finish the taper at home. She uses NC O2 on prn basis. (7) Cardiomyopathy: Ischemic. Continue coreg, entresto, statin, asa, lasix prn. (8) Chronic kidney disease, stage 3a: Creatinine was stable at 1.1 while hospitalized. (9) CAD (coronary artery disease): No ischemic symptoms with negative troponins x 3. (10) Dyslipidemia: Continue vytorin. (11) GERD (gastroesophageal reflux disease): Continue PPI. Total Time Total Time Spent Total Time Spent (In Minutes): 40 Total Time Includes: Examination of the Patient, Discharge Planning and Communication With Other Providers Discharge Plan Discharge Items Patient Disposition: Home - Self-Care Reason For Visit: DEFIBRILLATOR DISCHARGE, AFIB Discharge Diagnosis: 1. defibrillator discharge (shock delivered from your device) due to a run of ventricular tachycardia 2. atrial fibrillation 3. 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 Your defibrillator/pacemaker device was interrogated and it appears you had a. fib first, then a rhythm called ventricular tachycardia. You were seen in consult by Dr Healy from [facility] Cardiology who recommended the addition of a medication called digoxin for your heart. You had no evidence of heart attack while here. You had no evidence of any infections either. You were treated for congestive heart failure / fluid retention with a dose of IV lasix. You made a significant amount of urine with this. Your weight on 08/23/2019 is now 127 pounds. Lastly, when we checked your thyroid levels, it appears you are on a bit too much thyroid medication. Thus, we are recommending that you lower your dose to 88mcg once daily. Recommendations - 1. START digoxin 0.125mg once daily for your heart on 08/24/2019 in the afternoon. Prescription sent to [facility]. 2. STOP your old thyroid medication. In its place START levothyroxine 88mcg once daily. Start this TOMORROW on 08/24/2019. New prescription sent to [facility]. 3. TAKE lasix (furosemide) water pill, 20mg, NEEDED for swelling of the legs / weight gain of more than 2-3 pounds in 1-2 days. I sent a prescription in just in case you need additional lasix. 4. use your oxygen, 2 liters, as needed as previous. 5. check your weight EVERY MORNING on the same scale after using the toilet. Keep a notebook of your weights as you previously were doing. Again your weight was 127 pounds today. 6. Your INR was 2.1 (coumadin level) during this stay. 7. Finish your prednisone course that was recently prescribed by Dr Barrientos's office. Follow-up -- see Dr Ayoub THIS WEEK as scheduled Return to [facility] if -- * your device (defibrillator) shocks you at any time * you have worsening cough or shortness of breath * you have chest pain * you have fever over 100.5 degrees * any other concerns General COVID-19 information -- Coronavirus disease 2019 (COVID-19) is a virus that causes a respiratory illness. It is caused by a coronavirus called 2019 novel coronavirus (2019- nCoV). There are many types of coronavirus. Coronaviruses are a very common cause of bronchitis. They may sometimes cause lung infection(pneumonia). Symptoms can range from mild to severe respiratory illness. These viruses are also foundin some animals. COVID-19 was first found in people in [facility], in late 2019. In 2020, several cases of COVID-19 have been confirmed in the [place] Public health officials are working to find the source. How the virus spreads is not yet fully known. It may be spread through droplets of fluid that a person coughs or sneezes into the air. It may be spread if you touch a surface with virus on it, such as a handle or object, and then touch your mouth. What are the symptoms of COVID-19? Some people have no symptoms or mild symptoms. Symptoms may appear 2 to 14 days after contact with the virus. Symptoms can include: Fever Coughing Trouble breathing What are possible complications from COVID-19? In many cases, this virus can cause infection (pneumonia) in both lungs. In some cases, this can cause . How is COVID-19 diagnosed? Your healthcare provider will ask about your symptoms. He or she will also ask about your recent travel and contact with sick people. Testing for the virus is only done through the [facility]. If yourhealthcare provider thinks you may have COVID- 19, he or she will work with your local health department and the CDC on testing. Follow all instructions from your healthcare provider. COVID-19 is diagnosed by: Nasal and throat swab. A cotton-tipped swab is wiped inside your nose or throat. This is done to check for viruses in your nasal mucus. Sputum culture. A small sample of mucus coughed from your lungs (sputum) is collected if you have a cough. It is checked for the virus. How is COVID-19 treated? There is currently no medicine to treat the virus. Treatment is done to help your body while it fights the virus. This is known as supportive care. Supportive care may include: Pain medicine. These include acetaminophen and ibuprofen. They are used to help ease pain and reduce fever. Bed rest. This helps your body fight the illness. For severe illness, you may need to stay in the hospital. Care during severe illness may include: IV (intravenous) fluids.These are given through a vein to help keep your body hydrated. Oxygen. Supplemental oxygen or ventilation with a breathing machine (ventilator) may be given. This is done to keep enough oxygen in your body. Are you at risk for COVID-19? If youve been to a place where people have been sick with this virus, you are at risk for infection. You are at risk if you: Recently traveled to an affected area Had contact with a sick person who recently traveled to this area Had contact with a person who was diagnosed with COVID-19 How can COVID-19 be prevented? There is no vaccine yet. The best prevention is to not have contact with the virus. The CDC advises that people should not travel to areas where there are COVID-19 outbreaks right now for any reason that is not urgent. To help prevent spreading the infection, wash your hands often, or use an alcohol-basedhand livestock sales representative. If you are in an area with COVID-19: Wash your hands often. Or use an alcohol-based hand livestock sales representative often. Only touch your eyes, nose, or mouth with clean hands. Dont have contact with people who are sick. Follow local instructions about being in public. For example, you may be told to not use public transport for a period of time. Stay away from markets that have live or animals. Wash your hands after touching any animals. Don't touch animals that may be sick. Dont share eating or drinking tools with sick people. Dont kiss someone who is sick. Clean surfaces often with disinfectant. If you were in an area with COVID-19 in the last 14 days: Call your healthcare provider. He or she can talk with local health staff to see what action may be needed. Follow all instructions from your provider. Take your temperature every morning and evening for at least 14 days. This is to check for fever. Keep a record of the readings. Keep watch for symptoms of the virus. Tell your provider right away if you have symptoms. If you were in an area with COVID-19 and have a fever or other symptoms: Dont panic. Keep in mind that other illnesses can cause similar symptoms. Stay away from work, school, and public places. Limit physical contact with family members. Don't kiss anyone or share eating or drinking utensils. Clean surfaces you touch with disinfectant. This is to help prevent the virus from spreading. Call your healthcare provider. Explain that you have been exposed to COVID-19 and have symptoms. Do this before going to any hospital. Wait for instructions. Keep in mind that healthcare staff may wear protective equipment such as masks, gowns, gloves, and eye protection. You may be put in a separate room. This is to prevent the possible virus from spreading. Tell the healthcare staff about recent travel. This includes local travel on public transport. Staff may need to find other people you have been in contact with. Follow all instructions the healthcare staff give you. If you have been diagnosed with COVID-19 Follow all instructions from your healthcare provider. Dont leave your home, except to get medical care. Call your healthcare providers office before going. They can prepare and give you instructions. This will help prevent the virus from spreading. Dont go to work, school, or public areas. Dont use public transport or taxis. Stay away from other people in your home. Have them wear face masks around you. Dont share household items or food. Wear a face mask if you can. This includes at home or in a medical facility. Cover your face with a tissue when you cough or sneeze. Throw the tissue away. Wash your hands. Wash your hands often. Caregivers should: Follow all instructions from healthcare staff. Wear a face mask and protective clothing as advised. Wash hands often. Keep track of the sick persons symptoms. Clean surfaces, fabrics, and laundry thoroughly. Keep other people away from the sick person. When to call your healthcare provider Call your healthcare provider: If youve recently traveled and have symptoms If you have been diagnosed with COVID-19 and your symptoms are worse To learn more To find out more about COVID-19, visit the CDC website at www.cdc.gov/coronavirus/2019-ncov/index.html. [employer]. [address] [place], [place] [address]. All rights reserved. This information is not intended as a substitute for professional medical care. Always follow your healthcare professional's instructions. This information has been adapted from [employer] Addtl [employer] Study Teacher Provider Instructions: Congestive Heart Failure Instructions -- Call 911 and go to the Emergency Room if: * You have tightness or pain in your chest that does not go away with rest or Nitroglycerin * You are very short of breath even with rest Call your doctor if any of the following symptoms or problems start or get worse: * Shortness of breath or difficulty breathing * Wake up at night short of breath * Chest pain * Cough * Swelling of your hands, fee, or legs * More fatigued or tired with your normal activity * Palpitations - sudden fast heart beats WEIGHT * Weigh yourself every morning after using the bathroom. * Use the same scale. * Wear the same amount of clothing. * Write your weight down on your chart. * Call your doctor if you gain more than 2-3 pounds in 1-2 days. MEDICATIONS * Use this discharge instruction sheet for instructions. * Take your medications at the time your doctor ordered. * Do not skip a dose of your medicines. * If you miss a dose of medicine, take as soon as possible, but DO NOT DOUBLE A DOSE. * Read your medicine information when you get home. * Know all of the side effects of your medicine. * Call your doctor's office if you have any side effects. * Be sure all of your doctors know what medicine and herbs you take (including cold, flu, and herbal medicine). * Pain Medicine: If you do not get relief from your pain, please call your doctor for help. Take the following with you to your follow-up doctor appointments: * Weight Chart * Medication List * List of questions Do not drink excessive alcohol, beer or wine. Pending Studies at Discharge: No Stand-Alone Forms: My Childcare Bridge, Smoking Cessation Medications and DC Order Prescriptions: New digoxin [Digitek] 125 mcg (0.125 mg) Tablet 0.125 mg PO DAILY@1600 Qty: 30 RF: 3 (DME) Oxygen Home Liters Per Minute See Rx Instructions .ROUTE .MEDSUPPLY Qty: 1 RF: 0 furosemide [Lasix] 20 mg tablet 20 mg PO DAILY PRN (Reason: edema, weight gain > 2-3 pounds in 1-2 days) Qty: 30 RF: 0 levothyroxine 88 mcg capsule 88 mcg PO DAILY Qty: 30 RF: 3 Continued budesonide 0.5 mg/2 mL suspension for nebulization 2 ml inhalation BID Qty: 120 RF: 11 benzonatate [Tessalon Perles] 100 mg capsule 100 mg PO TID PRN (Reason: cough) Qty: 90 RF: 0 sacubitril-valsartan 49-51 mg tablet 1 tab PO BID Qty: 180 RF: 3 (DME) nebulizers Misc See Rx Instructions [id number] .MEDSUPPLY Qty: 1 RF: 0 ipratropium bromide 0.02 % solution 2.5 ml INH Q4H PRN (Reason: shortness of breath or wheezing) Qty: 300 RF: 11 albuterol sulfate 2.5 mg /3 mL (0.083 %) solution for nebulization 2.5 mg INH Q4H PRN (Reason: shortness of breath or wheezing) Qty: 360 RF: 5 multivitamin [Multiple Vitamins] Tablet 1 tab PO QAM RF: 0 carvedilol 25 mg tablet 25 mg PO BIDM RF: 0 aspirin [Aspir-81] 81 mg Tablet,Delayed Release (Dr/Ec) 81 mg PO QAM RF: 0 nitroglycerin 0.4 mg Tablet, Sublingual 0.4 mg sublingual UD PRN (Reason: Chest Pain) RF: 0 folic acid 1 mg Tablet 1 mg PO QAM RF: 0 esomeprazole magnesium [Nexium] 20 mg Capsule,Delayed Release(Dr/Ec) 20 mg PO QAM RF: 0 ezetimibe-simvastatin [Vytorin 10-80] 10-80 mg Tablet 1 tab PO HS RF: 0 cholecalciferol (vitamin D3) [Vitamin D3] 2,000 unit Tablet 2,000 unit PO QAM RF: 0 prednisone 10 mg tablet 10 mg PO DAILY RF: 0 warfarin [Coumadin] 2.5 mg tablet 1 mg PO QAM RF: 0 Discharge Orders: Discharge Order (Routine); Ordered 08/23/19 Ordered By: El Bullard/Other Patient Handouts: Digoxin, Carvedilol tablets, Levothyroxine oral capsules Admission Data Admit Date/Time: 08/22/19 11:55 Attending Provider: El Leach Admit Provider: [place] Primary Care Provider: Armani Haywood Other Providers: Shelby Kramer ; Alla Gonzalez ; Darrick England Other Interventions: Discharge Summary Assessment (RN) Last Done: 08/23/19 15:17 DC Date/Time DO NOT enter until pt leaves facility: 08/23/19 16:01 Coding Level of Care Code D/C Day Management >30 mins Diagnoses Implantable cardioverter-defibrillator (ICD) discharge Z45.02 Ventricular tachycardia I47.2 Chronic systolic CHF (congestive heart failure) I50.22 Paroxysmal A-fib I48.0 Hypothyroidism E03.9 Chronic obstructive pulmonary disease J44.9 Cardiomyopathy I42.9 Chronic kidney disease, stage 3a N18.3 CAD (coronary artery disease) I25.10 Dyslipidemia E78.5 GERD (gastroesophageal reflux disease) K21.9
--- NOTE | 2019-08-23 14:00 | Cardiology Consultation ---
Date of Consultation August 23, 2019 Assessment & Plan (1) Ventricular tachycardia: (2) Implantable cardioverter-defibrillator (ICD) discharge: (3) Paroxysmal A-fib: (4) Chronic systolic CHF (congestive heart failure): (5) S/P CABG (coronary artery bypass graft): (6) Ischemic cardiomyopathy: (7) CAD (coronary artery disease): ASSESSMENT/PLAN: 1. Ventricular tachycardia/ICD shock: Formal ICD interrogation will be performed by electrophysiology this upcoming week. On personal review, it appears as though she did develop a regular ventricular tachycardia that happened sometime after atrial fibrillation began. 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 Continue high dose carvedilol. Recommend close follow-up with electrophysiology. 2. Paroxysmal atrial fibrillation: She appeared to have atrial fibrillation preceding her ventricular tachycardia. Continue anticoagulation for stroke risk reduction. Continue high-dose beta-dorys. Will start low-dose digoxin. Discussed with Dr. Ayoub of electrophysiology. If her atrial arrhythmia help precipitate her ventricular arrhythmia, perhaps digoxin will help improve her heart rate while in atrial fibrillation and offer some benefit. Digoxin level can be followed by her speaker wirer or primary yacht builder. 3. Chronic systolic CHF: She has not required outpatient diuretic in quite some time. Her breathing has improved following brisk diuresis with Lasix 20 mg IV x1 while hospitalized. Her symptoms preceding her event yesterday are suggestive of hypervolemia. Recommend Lasix 20 mg p.o. once daily to be used on an as- needed basis for weight gain, edema, or worsening shortness of breath. Continue low-sodium diet and daily weights. Continue carvedilol and Entresto. Can consider further titration of Entresto as an outpatient as her LV systolic function is still significantly reduced. 4. CAD s/p CABG: No definite angina. Her symptoms in her chest were consistent with prior atrial fibrillation symptoms per her report. Continue medical therapy. 5. Ischemic cardiomyopathy: Continue medical therapy as noted above. 6. Disposition: She would like to be discharged home today. We discussed the fact that she could develop further ventricular arrhythmia that requires further ICD shock. She has an appointment this upcoming week with electrophysiology, Dr. Ayoub. She should keep this appointment. Dr. Ayoub was personally contacted via telephone to inform him of this hospitalization and we discussed treatment as above. Plan of care communicated with Dr. Schuster of the primary hospitalist service. Highly complex medical issues. Thank you for allowing me to participate in the care of your patient. Please call for any other questions or concerns. Sincerely, Tyrell England M.D. History of Present Illness Reason for Consultation: ICD shock Requesting Physician: Dr. Schuster Attending Physician: El Leach History of Present Illness Ms. 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 Her primary yacht builder is Dr. Gonzalez. Her primary speaker wirer is Dr. Ayoub. She is followed in Heart failure program with [facility]. She has had the following studies/procedures: 1. CABG x1 GONZALEZ to LAD 2002 at [facility] in [place]. 2. Bi V ICD followed by electrophysiology with generator change 2018. 3. Echo 05/07/2019: Moderately to severely reduced LV systolic function. EF 25-30%. Moderate to severe global hypokinesis with akinetic inferior wall. Moderate MR. Moderate TR. Moderate left atrial dilation. RVSP 40-50. She was admitted on 08/22/2019 after experiencing her first ever ICD shock. She woke up at approximately 5:00 a.m. to use the restroom and noted palpitations and an uncomfortable feeling in her substernal area, radiating into her neck. She states that this is exactly what her atrial fibrillation felt like in the past for which she underwent cardioversion in approximately 2018. She checked her heart rate with her pulse oximeter and noted that it was 104, stating that it typically is near 60 bpm. Her blood pressure was normal at 118/78. She lay down in bed and then sat in her recliner but felt no better. She went back into the restroom to have a bowel movement. While there, she felt lightheaded and then fell a shock in her chest. She denies syncope. She states that she has been more short of breath for the past 2 weeks, mostly dyspnea with exertion but short of breath even at rest at times. She has gained 1 lb per day for the past 3 days. She states that she was on diuretic in the past but has not required it has while on current dose of Entresto. She maintains a low-sodium diet. She continues to wear self on a daily basis. She typically does not have edema but states that over the past few days she has had lower extremity swelling. She now feels back to her usual self. She denies chest pain, palpitations, syncope, orthopnea, or bleeding such as melena, hematochezia, or hematuria. While here, she did receive Lasix 20 mg IV x1 and has a negative fluid balance of 2.4 L. She would like to go home. She denies any recent fever. She does not experience angina or chest discomfort with exercise. She tries to exercise on a regular basis. Review of systems: As above. Review of systems otherwise negative/unremarkable. Family history: No known premature CAD. Social history: She quit smoking approximately 25 years ago. She is a . She lives alone. She has 2 children. She is unaccompanied today. Allergies Allergy/AdvReac Type Severity Reaction Status Date / Time Penicillins Allergy Severe "CAN'T Verified 08/22/19 08:54 BREATHE" Home Medications Home Medications Medication Instructions Recorded Confirmed Type aspirin [Aspir-81] 81 mg PO QAM 08/21/18 08/22/19 History carvedilol 25 mg PO BIDM 08/21/18 08/22/19 History cholecalciferol (vitamin D3) 2,000 unit PO QAM 08/21/18 08/22/19 History [Vitamin D3] esomeprazole magnesium [Nexium] 20 mg PO QAM 08/21/18 08/22/19 History ezetimibe-simvastatin [Vytorin 1 tab PO HS 08/21/18 08/22/19 History 10-80] folic acid 1 mg PO QAM 08/21/18 08/22/19 History levothyroxine 100 mcg PO QAM 08/21/18 08/22/19 History multivitamin [Multiple Vitamins] 1 tab PO QAM 08/21/18 08/22/19 History nitroglycerin 0.4 mg SUBLINGUAL UD PRN 08/21/18 08/22/19 History budesonide 0.5 mg/2 mL suspension 2 ml INHALATION BID #120 vial 12/30/18 08/22/19 Rx for nebulization albuterol sulfate 2.5 mg INH Q4H PRN #360 ml 02/04/19 08/22/19 Rx benzonatate 100 mg capsule 100 mg PO TID PRN #90 cap 04/17/19 08/22/19 Rx ipratropium bromide 0.02 % 2.5 ml INH Q4H PRN #300 ml 04/21/19 08/22/19 Rx solution for inhalation sacubitril 49 mg-valsartan 51 mg 1 tab PO BID #180 tab 06/17/19 08/22/19 Rx tablet nebulizers #1 ea 07/07/19 08/18/19 Rx prednisone 10 mg PO DAILY 08/22/19 08/22/19 History warfarin [Coumadin] 1 mg PO QAM 08/22/19 08/22/19 History Patient History Medical History (Updated 08/23/19 @ 13:54 by Darrick England MD) Anemia CAD (coronary artery disease) Cardiac defibrillator in place (09/2018) Cardiomyopathy CHF (congestive heart failure), NYHA class II Chronic kidney disease, stage 3a Chronic obstructive pulmonary disease Chronic systolic CHF (congestive heart failure) Congestive heart failure DVT prophylaxis Dyslipidemia Dyspnea on exertion Elevated serum creatinine GERD (gastroesophageal reflux disease) History of AK (myocardial infarction) Hyponatremia Hypothyroidism Hypothyroidism Hypoxia (Resolved) ICD (implantable cardioverter-defibrillator) in place Ischemic cardiomyopathy On amiodarone therapy Pacemaker PMT (pacemaker-mediated tachycardia) Pneumonia Premature ventricular contractions Pulmonary emphysema Shortness of breath UTI (urinary tract infection) Ventricular tachycardia Surgical History (Updated 07/06/19 @ 16:46 by Julisa Richards) H/O: hysterectomy Hx of tonsillectomy Family History (Updated 07/08/19 @ 11:26 by Osvaldo Paige) Denies family history of Ovarian cancer Myocardial infarction Colorectal cancer Stroke Social History Preferred Language: Ghanaian Communication Ability: Effective Inspector Fibrous Wallboard Required: No Beliefs That Will Affect Care: None Current Living Situation: Alone Other Information That Helps Us Care for You: No Feels Safe at Home: Yes Safety Concerns: Feels Safe At This Time Smoking Status: Former smoker Smoking End Date: 25 years ago ; Number of Years Since Quit: 25 ; Second Hand Exposure: No ; Hx Alcohol Use: No Hx Substance Use: No Physical Exam Physical Exam: Gen.: No acute distress. Alert and oriented. HEENT: Anicteric sclera. Neck: No JVD. No hepatic jugular reflux. No bruits. Normal carotid upstrokes bilaterally. Cardiac: PMI was nondisplaced. No ventricular heave. Regular with occasional ectopy. Normal S1-S2. No murmurs, rubs, or gallops. Pulmonary: Clear to auscultation bilaterally without wheezes, rales, or rhonchi. Abdomen: Soft, nontender, nondistended, with normoactive bowel sounds. No bruits noted. Extremities: 2+ radial pulses bilaterally. 2+ posterior tibialis pulses bilaterally. No edema or cyanosis. Psychiatric: Affect appears appropriate. Results & Data ([facility]) Vital Signs (Past 12 Hours) Vital Signs Temp Pulse Resp BP Pulse Ox 08/23/19 11:57 36.6 C 86 20 110/63 92 08/23/19 08:00 36.4 C L 79 16 107/64 96 08/23/19 07:13 64 16 98 08/23/19 05:05 36.3 C L 81 18 110/57 L 97 Laboratory Results Laboratory Results - last 24 hr 08/22/19 08/22/19 08/23/19 14:21 22:39 05:32 WBC 7.13 RBC 3.97 L Hgb 11.6 L Hct 35.9 L MCV 90.4 MCH 29.2 MCHC 32.3 RDW Std Deviation 52.7 H RDW Coeff of Lachelle 15.8 H Plt Count 153 MPV 10.6 H Sodium Potassium Chloride Carbon Dioxide Anion Gap BUN Creatinine Est Cr Clr Drug Dosing Est GFR ( Amer) Est GFR (Non-Af Amer) BUN/Creatinine Ratio Glucose Calcium Total Bilirubin AST ALT Alkaline Phosphatase Troponin I 0.040 0.015 Total Protein Albumin Globulin Albumin/Globulin Ratio 08/23/19 05:32 WBC RBC Hgb Hct MCV MCH MCHC RDW Std Deviation RDW Coeff of Lachelle Plt Count MPV Sodium 141 Potassium 4.5 D Chloride 110 H Carbon Dioxide 25 Anion Gap 6.0 BUN 34 H Creatinine 1.17 Est Cr Clr Drug Dosing 35.3 Est GFR ( Amer) 50.6 Est GFR (Non-Af Amer) 43.7 BUN/Creatinine Ratio 29.4 H Glucose 118 H Calcium 8.8 Total Bilirubin 0.4 AST 21 ALT 18 Alkaline Phosphatase 54 Troponin I Total Protein 6.4 Albumin 2.7 L Globulin 3.7 Albumin/Globulin Ratio 0.7 L Diagnostic Findings Telemetry personally reviewed: Ventricular pacing noted. No arrhythmia. ICD interrogation records reviewed personally. It appears as though she developed atrial fibrillation yesterday morning and then developed a regular, but tachycardic ventricular rhythm, concerning for ventricular tachycardia. This resolved following ICD shock. Atrial fibrillation was also terminated following shock. Echo report reviewed as noted above in the HPI. ECG personally reviewed. ECG 08/22/2019: Atrial sensed and ventricular paced rhythm at 84 bpm. PVCs. Chest x-ray 08/22/2019: Stable patchy infiltrates right upper lung, chronic per Radiology. No new infiltrate. Some degree of congestive change per Radiology. Underlying emphysema per Radiology. Medications Administered Current Inpatient Medications Acetaminophen (Tylenol) 650 mg PO Q4H PRN PRN Reason: Moderate Pain Stop: 09/21/19 12:04 Aspirin (Ecotrin Ectab) 81 mg PO [facility] Stop: 09/22/19 08:59 Last Admin: 08/23/19 08:33 Dose: 81 mg Documented by: Bisacodyl (Dulcolax) 5 mg PO HS PRN PRN Reason: Constipation Stop: 09/21/19 21:08 Last Admin: 08/22/19 21:28 Dose: 5 mg Documented by: Budesonide (Pulmicort Respules) 0.5 mg INH BIDR [facility] Stop: 09/21/19 18:59 Last Admin: 08/23/19 07:13 Dose: 0.5 mg Documented by: Carvedilol (Coreg) 25 mg PO BIDM [facility] Stop: 09/21/19 16:59 Last Admin: 08/23/19 08:33 Dose: 25 mg Documented by: Digoxin (Lanoxin) 0.125 mg PO DAILY@1600 [facility] Stop: 09/22/19 15:59 Ezetimibe (Zetia) 10 mg PO HS [facility] Stop: 09/21/19 20:59 Last Admin: 08/22/19 21:29 Dose: 10 mg Documented by: Folic Acid (Folvite) 1 mg PO QAM [facility] Stop: 09/22/19 08:59 Last Admin: 08/23/19 08:33 Dose: 1 mg Documented by: Levothyroxine Sodium (Synthroid) 88 mcg PO DAILYBB [facility] Stop: 09/22/19 06:29 Last Admin: 08/23/19 05:55 Dose: 88 mcg Documented by: Lorazepam (Ativan) 0.5 mg PO HS PRN PRN Reason: Anxiety/Insomnia Stop: 09/21/19 21:14 Last Admin: 08/22/19 21:28 Dose: 0.5 mg Documented by: Multivitamins ([facility]itamin Tab) [facility] Stop: 09/22/19 08:59 Last Admin: 08/23/19 08:33 Dose: 1 tab Documented by: Nitroglycerin (Nitrostat) 0.4 mg SL UD PRN PRN Reason: Chest Pain Stop: 09/21/19 13:13 Ondansetron HCl (Zofran) 4 mg IV Q4H PRN PRN Reason: Nausea And Vomiting Stop: 09/21/19 12:04 Pantoprazole Sodium (Protonix) 40 mg PO [facility]; Protocol Stop: 09/22/19 08:59 Last Admin: 08/23/19 08:33 Dose: 40 mg Documented by: Prednisone (Prednisone) 20 mg PO DAILY [facility] Stop: 08/24/19 09:01 Last Admin: 08/23/19 08:33 Dose: 20 mg Documented by: Prednisone (Prednisone) 10 mg PO DAILY [facility] Stop: 08/26/19 09:01 Sacubitril/Valsartan (Entresto 49/51mg) 1 tab PO BID [facility] Stop: 09/21/19 20:59 Last Admin: 08/23/19 08:32 Dose: 1 tab Documented by: Simvastatin (Zocor) 80 mg PO HS [facility] Stop: 09/21/19 20:59 Last Admin: 08/22/19 21:28 Dose: 80 mg Documented by: Vitamin D (Vitamin D3) 2,[facility] Stop: 09/22/19 08:59 Last Admin: 08/23/19 08:33 Dose: 2,000 units Documented by: Warfarin Sodium (Coumadin) 1 mg PO DAILY@1600 [facility] Stop: 09/21/19 15:59 Last Admin: 08/22/19 14:49 Dose: 1 mg Documented by: PG Care Time/CCT Total # of Minutes Spent Total Time Spent with Patient: Total time spent is greater than 50% in coordination of care (as documented) at patient's floor/unit and/or counseling patient: Coding Level of Care Code 81463 Initial Inpt Care Lvl 3 Diagnoses Ventricular tachycardia I47.2 Implantable cardioverter-defibrillator (ICD) discharge Z45.02 Paroxysmal A-fib I48.0 Chronic systolic CHF (congestive heart failure) I50.22 S/P CABG (coronary artery bypass graft) Z95.1 Ischemic cardiomyopathy I25.5 CAD (coronary artery disease) I25.10
[2019-08-23] MEDS ORDERED: DIGOXIN 0.125 MG TAB PO SCH (16:00)
[2019-08-25] MEDS ORDERED: predniSONE 10 MG TABLET PO SCH (09:00)
== END 2019-08-23 16:01 | disposition home or self-care (01) | DRG 308 ==
LOC: ED 08:22 → 2S 11:55 → INTOOBSV 11:55 → 2S 12:48